=== PATIENT | female | born 1985 | race Caucasian/White ===

== ENCOUNTER → 2017-02-22 08:51 | Day surgery (SDC) | payer OTHER ==
[~2017-02-22 08:51] MED LIST: Atracurium* 10 MG/ML 10 ML VIAL ONE; Buffered Lidocaine 1% SYRIN* 3 ML/SYR SYRINGE INTRADERM ONE; Bupivacaine 0.5% W/EPI SDV* 30 ML VIAL ONE; Dexamethasone IV* 4 MG/ML 1 ML (4 MG) IV SLOW PU ONE; Dexamethasone IV* 4 MG/ML 1 ML (4 MG) ONE; DiMENhydriNATE IV* 50 MG/ML VIAL IV PUSH PRN; DiMENhydriNATE IV* 50 MG/ML VIAL ONE; Edrophonium Chloride* 10 MG/ML 15 ML VIAL ONE; Glycopyrrolate IV* 0.2 MG/ML 1 ML VIAL ONE; HYDROmorphone* 1 MG/ML 1 ML SYR IV PRN; Ketorolac INJ* 30 MG/ML 1 ML VIAL ONE; Lidocaine 2% PF* 5 ML VIAL ONE; Midazolam* 1 MG/ML 5 ML VIAL (5 MG) ONE; Ondansetron INJ* 2 MG/ML VIAL IV PRN; Ondansetron INJ* 2 MG/ML VIAL ONE; Propofol* 10 MG/ML 20 ML BTL IV PUSH ONE; Scopolamine 1.5 mg* PATCH TRANSDERM PRN; Scopolomine PATCH Remove* 1 NOTE MISC PATCH OFF ONE; ceFAZolin 2 GM PREMIX(*) 2 GM/50 ML BAG IVPB ONE; fentaNYL* 50 MCG/ML 2 ML VIAL (100 MCG VIAL) IV PRN; fentaNYL* 50 MCG/ML 2 ML VIAL (100 MCG VIAL) ONE; fentaNYL* 50 MCG/ML 5 ML VIAL (250 MCG VIAL) ONE; oxyCODONE/Acetamin 5/325 MG* TAB PO PRN
[2017-02-22 08:52] LABS: Manual Entry Verification AS; UR Preg Internal Control QC Line Present; UR Preg Kit Lot# 6030156
[2017-02-22 13:45] VITALS: BP 138/89
--- NOTE | 2017-02-23 15:28 | OP ---
DATE OF OPERATION: 02/22/17 - [facility] DATE OF : 85 SURGEON: Helder Grigsby MD PRESCHOOL HEAD TEACHER: JAMEE Peterson ANESTHESIOLOGIST: Dr. Singh. ANESTHESIA: General endotracheal. PRE-OP DIAGNOSIS: Symptomatic gallstones. POST-OP DIAGNOSIS: Symptomatic gallstones. OPERATIVE PROCEDURE: Laparoscopic cholecystectomy. ESTIMATED BLOOD LOSS: Minimal. IV FLUIDS: Crystalloids. SPECIMEN: Gallbladder. DRAINS: None. COMPLICATIONS: None. COUNTS: The instrument, needle, and sponge counts were correct. DESCRIPTION OF PROCEDURE: The patient was brought to the operating room and placed on the table supine. Sequential compression devices were placed on both lower extremities and general anesthesia was administered. Her abdomen was prepped and draped in the usual sterile fashion. Local anesthetic was infiltrated into the skin and soft tissue prior to making each incision. Entry to the abdomen was through a right upper quadrant incision accommodating a 5-mm optical trocar. After accessing the peritoneal cavity, carbon dioxide was insufflated to a pressure of 15 mmHg and a 5-mm 0-degree laparoscope was introduced. There was noted to be no injury to the underlying viscera. Under direct visualization, 5-mm trocars were placed in the supraumbilical midline and further laterally in the right upper quadrant. A 12-mm trocar was placed in the subxiphoid position. The gallbladder was identified. It did not appear to be acutely inflamed and it was grasped at the fundus and retracted superiorly. The infundibulum was identified and the peritoneum investing the gallbladder was incised sharply and using cautery and blunt dissection, the peritoneum was peeled away to expose the infundibulocystic duct junction, which was dissected out and in addition, the node of Calot was dissected out and the cystic artery was identified and after obtaining a critical view, the cystic duct was doubly clipped and divided. The cystic artery was clipped and divided and then cautery and scissor dissection was used to divide the gallbladder from the attachments to the liver. There was a posterior branch of the cystic artery , which was encountered and clipped. The gallbladder was then completely dissected free of its attachments to the liver, placed into a retrieval bag, and retrieved through the subxiphoid port site. The hemostasis in the liver bed was assured and then clips were noted to be intact. The ports were removed under direct visualization and carbon dioxide was released. The port sites were closed with 4-0 Polysorb to approximate the skin edges in a subcuticular fashion. Steri-Strips were applied. The patient tolerated the procedure well, was extubated, and transferred to recovery room in stable condition. CC: Dr. Holly Jesus* [id number]/CPS #: [id number] [id number]
== END | disposition home or self-care (01) ==
LOC: OR 08:51
PROVIDERS: ATTEND Surgery
DX: K80.10 Calculus of gallbladder with chronic cholecystitis without obstruction (principal); K21.9 Gastro-esophageal reflux disease without esophagitis; E03.9 Hypothyroidism, unspecified; R73.03 Prediabetes; F41.8 Other specified anxiety disorders; E66.01 Morbid (severe) obesity due to excess calories
CPT/HCPCS: 81025; 88304; J0690; J1100; J1240; J1885; J2250; J2405; J2704; J3010

== ENCOUNTER 2018-12-20 16:43 | Emergency (ER) | payer OTHER ==
[2018-12-20] MEDS ORDERED: NS 0.9% 1000 ML** 1,000 ML IV ONE (18:09)
[2018-12-20] MEDS ORDERED: Ketorolac INJ* 30 MG/ML 1 ML VIAL IV ONE (18:09)
[2018-12-20] MEDS ORDERED: Metoclopramide IV* 5 MG/ML 2 ML VIAL IV ONE (18:11)
--- NOTE | 2018-12-20 18:18 | ED ---
GI/ HPI - HPI Summary HPI Summary: Patient is a 33 y/o F presenting to ED with complaints of sudden onset RLQ pain with radiation to her back. Pain onset 1530, has been constant since. Chills, nausea are also reported. She notes PMHx of kidney stones, PSHx of section, cholecystectomy. Appendix is still present. On triage, pain is rated 10 /10, nothing is noted to aggravate/alleviate Sx. Home medications and allergies are reviewed. - History of Current Complaint Chief Complaint: EDAbdPain Time Seen by Provider: 12/20/18 18:04 Stated Complaint: ABD PAIN/BACK PAIN Hx Obtained From: Patient Hx Last Menstrual Period: 01/28/16 Onset/Duration: Started Hours Ago - 1530 onset today, Still Present Timing: Constant, Lasting Hours - 1530 onset today Severity: Severe - 10/10 Current Severity: Severe - 10/10 Pain Intensity: 10 Location of Pain: RLQ Pain Radiates to: Back Associated Signs and Symptoms: Positive: Back Pain, Nausea, Chills, Abdominal Pain Aggravating Factor(s): Nothing Alleviating Factor(s): Nothing - Additional Pertinent History Primary Care Physician: [id number] - Allergy/Home Medications Allergies/Adverse Reactions: Allergies Allergy/AdvReac Type Severity Reaction Status Date / Time adhesive Allergy Rash Verified 12/20/18 18:06 morphine Allergy Vomiting Verified 12/20/18 18:06 povidone-iodine Allergy Rash Verified 12/20/18 18:06 [From Betadine] Home Medications: Home Medications Lisinopril [Zestril 2.5 MG-] 2.5 mg PO DAILY 12/20/18 [History Confirmed ] cloNIDine HCl [Clonidine HCl ER 0.1 MG] 0.1 mg PO DAILY 12/20/18 [History Confirmed 12/20/18] metFORMIN* [Glucophage 500 MG TAB *] 500 mg PO BID 12/20/18 [History Confirmed 12/20/18] PMH/Surg Hx/FS Hx/Imm Hx Endocrine/Hematology History: Reports: Hx Diabetes - borderline, Hx Thyroid Disease, Hx Anemia - hx of. no problems now Cardiovascular History: Reports: Hx Hypertension GI History: Reports: Hx Gastroesophageal Reflux Disease Denies: Other GI Disorders History: Reports: Hx Kidney Stones - till has some kidney stones Sensory History: Denies: Hx Contacts or Glasses, Hx Hearing Aid Opthamlomology History: Denies: Hx Contacts or Glasses Neurological History: Reports: Other Neuro Impairments/Disorders - hx of vertigo r/t sinus infection Psychiatric History: Reports: Hx Anxiety, Hx Depression - Surgical History Surgery Procedure, Year, and Place: x2 epidural, cholecystectomy Hx Anesthesia Reactions: No - Immunization History Date of Tetanus Vaccine: up to date Date of Influenza Vaccine: never Infectious Disease History: No Infectious Disease History: Denies: Traveled Outside the [place] in Last 30 Days - Family History Known Family History: Positive: Cardiac Disease, Diabetes, Other - breast CA Family History: Per EMR from 08/07/2015, positive for unspecified cardiac dz and HTN in father. Positive breast CA and DM in mother. - Social History Alcohol Use: Rare Hx Substance Use: No Substance Use Type: Reports: None Hx Tobacco Use: No Smoking Status (MU): Never Smoked Tobacco Review of Systems Positive: Chills Positive: Abdominal Pain - with radiation to back , Nausea All Other Systems Reviewed And Are Negative: Yes Physical Exam - Summary Physical Exam Summary: Appearance: Well appearing, no pain distress Skin: warm, dry, reflects adequate perfusion Head/face: normal Eyes: EOMI, THONG ENT: normal Neck: supple, non-tender Respiratory: CTA, breath sounds present Cardiovascular: RRR, pulses symmetrical Abdomen: RLQ tenderness, soft Musculoskeletal: normal, strength/ROM intact Neuro: normal, sensory motor intact, A&Ox3 Triage Information Reviewed: Yes Vital Signs On Initial Exam: Initial Vitals Temp Pulse Resp BP Pulse Ox 98.5 F 107 24 165/84 100 12/20/18 16:46 12/20/18 16:46 12/20/18 16:46 12/20/18 16:46 12/20/18 16:46 Vital Signs Reviewed: Yes Diagnostics - Vital Signs Vital Signs Temp Pulse Resp BP Pulse Ox 12/20/18 16:46 98.5 F 107 24 165/84 100 - Laboratory Result Diagrams: 12/20/18 18:22 12/20/18 18:22 Lab Statement: Any lab studies that have been ordered have been reviewed, and results considered in the medical decision making process. - CT abd/pel ct CT Interpretation Completed By: Radiologist Summary of CT Findings: CT ABD/PEL IMPRESSION. 1. Distal right ureteral stone with dilatation of the right ureter and renal. pelvis and perinephric fat stranding. 2. No other acute findings. THIS REPORT WAS REVIEWED BY ED PHYSICIAN. Re-Evaluation - Re-Evaluation First Eval Re-Evaluation Time: 20:43 Comment: Results of labs and tests were dicussed with patient. She will be discharged to home to follow up with PCP and urologist. She is agreeable with this. GIGU Course/Dx - Course Course Of Treatment: Patient is a 33 y/o F presenting to ED with complaints of sudden onset RLQ pain with radiation to her back. Pain onset 1530, has been constant since. Chills, nausea are also reported. She notes PMHx of kidney stones, PSHx of section, cholecystectomy. Appendix is still present. On physical exam, RLQ tenderness is noted. Bloodwork, UA were obtained. CT ABD /PEL IMPRESSION. 1. Distal right ureteral stone with dilatation of the right ureter and renal. pelvis and perinephric fat stranding. During ED course, patient received Flomax 0.4 mg PO ONCE, fluids, reglan 10 mg IV ONCE, Toradol 30 mg IV ONCE, Zofran 4 mg SL ONCE, and Percocet 5/325 2 tab PO ONCE. Results of labs and tests were dicussed with patient. She will be discharged to home to follow up with PCP and urologist. She is agreeable with this. - Diagnoses Differential Diagnoses - Female: Ovarian Cyst, Pancreatitis, Renal Calculi, Urinary Tract Infection, Ureteral Calculi Provider Diagnoses: Renal colic Discharge - Sign-Out/Discharge Documenting (check all that apply): Patient Departure - DISCHAGE Patient Received Moderate/Deep Sedation with Procedure: No - Discharge Plan Condition: Stable Disposition: HOME Prescriptions: Ondansetron ODT TAB* [Zofran 4 MG Odt TAB*] 4 mg PO Q8H PRN #15 tab.odt MDD 3 PRN Reason: Nausea Oxycodone HCl/Acetaminophen [Percocet] 1 tab PO TID #15 tab MDD 3 Tamsulosin CAP* [Flomax CAP*] 0.4 mg PO DAILY #14 cap Patient Education Materials: Renal Colic (ED) Referrals: Holly Jesus MD [Primary Care Provider] - 3 Days Myke Guerrero MD [Medical Doctor] - 3 Days Additional Instructions: RETURN TO ED WITH ANY NEW OR WORSENING SYMPTOMS. FOLLOW UP WITH PRIMARY CARE PHYSICIAN AND UROLOGIST WITHIN THREE DAYS. - Billing Disposition and Condition Condition: STABLE Disposition: Home - Attestation Statements Document Initiated by Scribe: Yes Documenting Scribe: DAMASO ROY Provider For Whom Scribe is Documenting (Include Credential): CHARLES QUIÑONEZ MD Scribe Attestation: DAMASO Kolb , scribed for CHARLES QUIÑONEZ MD on 12/20/18 at 2117. Scribe Documentation Reviewed: Yes Provider Attestation: The documentation as recorded by the DAMASO salazar accurately reflects the service I personally performed and the decisions made by me, CHARLES QUIÑONEZ MD Status of Scribe Document: Viewed
[2018-12-20 18:33] LABS: ABS Basophils 0 10^3/ul (0-0.2); ABS Eosinophils 0.1 10^3/ul (0-0.6); ABS Lymphocytes 1.7 10^3/ul (1.0-4.8); ABS Monocytes 0.5 10^3/ul (0-0.8); ABS Neutrophils 13.5 10^3/ul (1.5-7.7); ABS Nucleated RBC 0 10^3/ul; Eosinophil % 0.4 %; Hematocrit 41 % (35-47); Hemoglobin 13.9 g/dl (12.0-16.0); Lymphocyte % 10.6 %; Mean Corpuscular HGB Conc 34 g/dl (31-36); Mean Corpuscular Hemoglobin 28 pg (27-31); Mean Corpuscular Volume 82 fL (80-97); Nucleated Red Blood Cells % 0; Platelet Count 475 10^3/ul (150-450); Red Cell Distribution Width 15 % (10.5-15); White Blood Count 15.8 10^3/ul (3.5-10.8)
[2018-12-20 18:41] LABS: Activated Partial Thrombo Time 27.2 seconds (26.0-36.3); INR 0.87 (0.77-1.02)
[2018-12-20 18:56] LABS: ALT 38 U/L (7-52); AST 28 U/L (13-39); Albumin 4.9 g/dL (3.2-5.2); Albumin/Globulin Ratio 1.4 (1-3); Alkaline Phosphatase 73 U/L (34-104); Anion Gap 17 mmol/L (2-11); BUN/Creatinine Ratio 17.9 (8-20); Blood Urea Nitrogen 17 mg/dL (6-24); CO2 Carbon Dioxide 19 mmol/L (22-32); Chloride 101 mmol/L (101-111); EGFR Non-African American 67.7 (>60); Globulin 3.4 g/dL (2-4); Glucose 196 mg/dL (70-100); Potassium 3.8 mmol/L (3.5-5.0); Sodium 137 mmol/L (135-145); Total Protein 8.3 g/dL (6.4-8.9)
[2018-12-20 18:59] LABS: HCG Pregnancy < 0.60 mIU/mL
[2018-12-20 20:10] LABS: Urine Appearance Clear; Urine Bacteria Absent (Absent); Urine Bilirubin Negative (Negative); Urine Blood Negative (Negative); Urine Color Yellow; Urine Glucose Negative (Negative); Urine Ketones 2+ (Negative); Urine Nitrite Negative (Negative); Urine Protein 1+(30 mg/dL) (Negative); Urine Red Blood Cell 2+(6-10/hpf) (Absent); Urine Specific Gravity 1.025 (1.010-1.030); Urine Squamous Epithelial Cell Present (Absent); Urine Urobilinogen Negative (Negative); Urine White Blood Cell Trace(0-5/hpf) (Absent)
[2018-12-20] MEDS ORDERED: Tamsulosin CAP* 0.4 MG PO ONE (20:30)
[2018-12-20] MEDS ORDERED: Ondansetron ODT TAB* 4 MG SL ONE (20:46)
[2018-12-20] MEDS ORDERED: oxyCODONE/Acetamin 5/325 MG* TAB PO ONE (20:46)
[2018-12-20 21:05] VITALS: BP 144/100
== END 2018-12-20 21:05 | disposition home or self-care (01) ==
LOC: ED 16:43
DX: N20.2 Calculus of kidney with calculus of ureter (principal); Z87.442 Personal history of urinary calculi
CPT/HCPCS: 36415; 74176; 80053; 81003; 81015; 83690; 84702; 85025; 85610; 85730; 87086; 96361; 96374; 96375; 99284; A9270-GY; J1885; J2765

== ENCOUNTER 2018-12-29 15:53 | Emergency (ER) | payer OTHER ==
--- OUTSIDE RECORDS SUMMARY | 2018-12-29 16:06 | XMS REPORT | Continuity of Care Document ---
:1985 External Reference #:[id number] Author Name Holly Jesus M.D. 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 Active Onset: 07/30/2014 Type 2 diabetes mellitus Holly Jesus M.D. Active Onset: 04/06/2012 Impaired fasting glycaemia Heather Jose M.D. Active Onset: 12/02/2011 Depressive disorder Heather Jose M.D. Active Onset: 12/02/2011 Morbid obesity Heather Jose M.D. Active Onset: 12/02/2011 Hypothyroidism Heather Jose M.D. Active Family History Date Family Member(s) Problem(s) Comments General Diabetes Mellitus, II many on father's side. , MOm's sister. General no fam hx lung,colon CA. Father due to Heart Disease () - AGE 49, Diabetes. Mother HTN, Depression, History Of BR Cancer, DM. Lives in [place] Number of Children 2 First Son healthy First Daughter hip dysplasia in full body cast x 4 1/2 months. follows with ortho in [place]. First Sister hypothyroid. livesin [place]. Second Sister healthy. lives in [place]. Social History Type Date Description Comments Sex Unknown Marital Status Has male partner Living Situation Lives with son and daughter, boyfriend. 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 Tobacco Use Start: Unknown Never Smoked Cigarettes ETOH Use Occasionally consumes not even once a wine month. Tobacco Use Start: Unknown Patient has never smoked Smoking Status Reviewed: 11/24/17 Patient has never smoked Exercise Type/Frequency Exercises regularly. Current Taking a walk every day, even if only 20 minutes. Contraceptive Methods sharobel. STD's No STD history Allergies, Adverse Reactions, Alerts Date Description Reaction Status Severity Comments 12/02/2011 Betadine Active Medications Medication Date Status Form Strength Qnty SIG Indications Ordering Provider Prilosec OTC 09/18/ Active Tablets 20mg 30tab Take One Holly calvert Capsule By Ann Marie, Mouth Every M.D. Day Melatonin 07/13/ Active Capsules 3mg 30cap 1 by mouth Holly Elena s every night Ann Marie at bedtime M.Alisson Lisinopril 07/13/ Active Tablets 2.5mg 90tab 1 by mouth E11.9 Holly Clark 2018 s every day Stephen Jesus Metformin HCL 03/22/ Active Tablets 500mg 180ta 1 by mouth E11.9 Holly Clark 2018 bs twice Ann Marie, daily. M.D. please use this script. i in the morning increasing her metformin to 2 pills daily. thanks. Control 07/22/ Active Unknown Pill 2016 Levoxyl 02/20/ Active Tablets 75mcg 30tab take 1 Holly Clark 2012 enrike tablet by Ann Marie, mouth one M.D. time daily Prozac / Active Capsules 40mg 1 by mouth Unknown 0000 daily Clonidine HCL / Active Tablets 0.1mg 1 by mouth Unknown 0000 qhs Freestyle Lite 03/22/ Hx Strips 200un test blood E11.9 Holly Clark Test 2018 - its sugar twice Ann Marie, 12/26/ daily or as M.D. 2019 directed Ciprofloxacin 04/13/ Hx Solution 0.3% 2.500 1-2 drops H10.89 Holly Clark HCL 2015 - ml to left eye Ann Marie, 07/15/ every 1-6 M.D. 2016 hours until better. Cefdinir 01/13/ Hx Capsules 300mg 28cap 1 by mouth J01.80 Holly Clark 2016 - s twice daily Ann Marie, 07/15/ for 14 days M.D. 2015 Freestyle 28G 08/27/ Hx 100un Test Blood Holly Clark Lancets 2013 - its Sugar Two Ann Marie, 11/21/ Times Daily M.D. 2015 Glucometer 07/30/ Hx 100un take blood E03.8 Holly LJennifer Strips 2013 - its glucose Ann Marie, 11/21/ twice a M.D. 2015 day. Lancets 07/30/ Hx 100un take blood E03.8 Holly LJennifer 2013 - its sugar twice Ann Marie, 11/21/ daily M.D. 2015 Metformin HCL 07/30/ Hx Tablets 500mg 90tab 1 po qd E03.8 Holly Clark 2013 - s Ann Marie, 01/13/ M.D. 2016 09/17/ Hx Tablets Family 2013 - Medicine 07/15/ Associates 2016 [facility] [place] Cephalexin 04/10/ Hx Capsules 500mg 14cap 1 po bid x 680.8 Oma 2012 - s 7 days Casper, 04/17/ Afnp-C 2013 Wellbutrin 10/09/ Hx Tablets 100mg 3 tabs PO 311 Monique 2011 - daily Lisa, 01/10/ CALENDER W[employer] UP TENDER 2013 Zoloft 12/02/ Hx Tablets 75mg 1 po qd Heather Vinson [address] - [facility], 01/06/ M.D. 2012 Wellbutrin XL 12/02/ Hx Tablets 150mg 30tab Take One Heather Vinson 2011 - ER 24HR s Tablet By Damon, 10/09/ Mouth Every M.D. 2012 Day Amoxicillin 02/10/ Hx Tablets 500mg 30tab 1 tid x 10 461.9 Oma 2010 - s days Casper, 02/20/ Afnp-C 2010 Prilosec 11/13/ Hx Capsules 20mg 30cap Take One Holly Clark 2007 - s Capsule By Ann Marie, 09/18/ Mouth Every M.D. 2018 Day Zithromax 01/06/ Hx Tablets 250mg 6tabs 2 tabs po Slabador T. 2007 - day 1; then Midura, tab qd M.D. 2007 days 2-5 Tamiflu 01/06/ Hx Capsules 75mg 10cap 1 po bid Salbador T. 2007 - s Lamar, 06/11/ M.D. 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 for Severe L Ankle Sprain Ortho 08/04/2005 - Hx Tablets 0.035mg 1Month 1 po qd Oma Tri-Cyclen 07/09/2010 ;0.18mg Casper, ;0.035 Afnp-C Keflex 12/09/2003 - Hx 500mg 0units 1 po qid x Family 02/02/2005 10d Medicine [facility] Iron Tab 05/14/2002 - Hx 325mg 100unit 1 po bid Salbador T. 02/02/2005 enrike Newton M.D. Pepcid 08/11/2000 - Hx 40mg 30units 1 PO QHS Aline 11/02/2000 DERREK Bailey Levoxyl 07/15/1999 - Hx 0.025mg 90units 1 po qd Evert Machado 12/09/2003 Stephen Alvarez Naproxen 12/09/1998 - Hx 375mg 30units 1 tid For Soren Vogt 12/23/1998 Tab One Week Blumkin, Then tid prn M.D. Levoxyl 06/10/1998 - Hx Tablets 75mcg 30tabs Take One 244.9 Daysi 02/20/2013 Tablet By Andrzejorf, Mouth Every Afnp-C Day Zyrtec - Hx Tablets 10mg OTC 1 po qd Unknown 04/10/2013 Ortho - Hx Tablets use as Unknown Tri-Cyclen 09/17/2013 directed Multi Vitamin - Hx Tablets Unknown 04/10/2013 Wellbutrin SR - Hx Tablets ER 200M 1 PO bid Unknown 01/10/2013 12HR Wellbutrin SR - Hx Tablets ER 200mg 1 po bid 311 Unknown 04/10/2013 12HR Bupropion HCL - Hx Tablets ER 150mg 1 po qd Unknown XL 09/17/2013 24HR Bupropion HCL - Hx Tablets ER 300mg 1 po qd Unknown XL 09/17/2013 24HR Prozac - Hx Capsules 20mg 1 by mouth Unknown 04/13/2016 every day Gabapentin - Hx Capsules 300mg 1 by mouth Unknown 06/24/2017 [facility] Immunizations CPT Code Status Date Vaccine Lot # [id number] Given 09/13/2018 Pneumococcal Conjugate Vacc-13 [id number] Given 07/30/2014 Tdap Tetanus, W Pertussis [id number] Given 10/20/1999 Td Immunization, For Use In Individuals 7 Years Or Older Vital Signs Date Vital Result Comment 12/26/2018 9:33am BP Systolic 100 mmHg BP Diastolic 60 mmHg Heart Rate 64 /min Body Temperature 98.3 F Respiratory Rate 16 /min Height 64.5 inches 5'4.50" measured 11/24/17 Weight 233.00 lb BMI (Body Mass Index) 39.4 kg/m2 09/13/2018 11:36am BP Systolic 138 mmHg BP Diastolic 80 mmHg Heart Rate 60 /min Body Temperature 98.1 F Respiratory Rate 18 /min Height 64.5 inches 5'4.50" measured 11/24/17 Weight 237.00 lb BMI (Body Mass Index) 40.0 kg/m2 07/13/2018 9:43am BP Systolic 122 mmHg BP Diastolic 70 mmHg Heart Rate 72 /min Body Temperature 97.9 F Respiratory Rate 18 /min Height 64.5 inches 5'4.50" measured 11/24/17 Weight 243.00 lb BMI (Body Mass Index) 41.1 kg/m2 03/22/2018 11:51am BP Systolic 142 mmHg BP Diastolic 92 mmHg Heart Rate 96 /min Body Temperature 98.1 F Height 64.5 inches 5'4.50" measured 11/24/17 Weight 246.56 lb BMI (Body Mass Index) 41.7 kg/m2 11/24/2017 11:04am BP Systolic 128 mmHg BP Diastolic 74 mmHg Heart Rate 66 /min Body Temperature 98.1 F Respiratory Rate 16 /min Height 64.5 inches 5'4.50" measured 11/24/17 Weight 249.50 lb BMI (Body Mass Index) 42.2 kg/m2 06/01/2017 12:09pm BP Systolic 120 mmHg BP Diastolic 80 mmHg Heart Rate 84 /min Body Temperature 98.2 F Respiratory Rate 18 /min Height 64 inches 5'4" Weight 244.00 lb BMI (Body Mass Index) 41.9 kg/m2 03/02/2017 11:38am BP Systolic 122 mmHg BP Diastolic 74 mmHg Heart Rate 78 /min Body Temperature 98.4 F Respiratory Rate 16 /min Height 64 inches 5'4" Weight 237.50 lb BMI (Body Mass Index) 40.8 kg/m2 02/07/2017 5:49pm BP Systolic 134 mmHg BP Diastolic 80 mmHg Heart Rate 78 /min Body Temperature 96.8 F Respiratory Rate 16 /min Height 64 inches 5'4" Weight 240.00 lb BMI (Body Mass Index) 41.2 kg/m2 10/19/2016 10:17am BP Systolic 120 mmHg BP Diastolic 80 mmHg Heart Rate 68 /min Body Temperature 98.0 F Respiratory Rate 18 /min Height 64 inches 5'4" Weight 238.00 lb BMI (Body Mass Index) 40.8 kg/m2 07/15/2016 3:37pm BP Systolic 110 mmHg BP Diastolic 76 mmHg Heart Rate 72 /min Body Temperature 98.1 F Respiratory Rate 18 /min Height 64 inches 5'4" Weight 235.00 lb BMI (Body Mass Index) 40.3 kg/m2 04/13/2016 9:18am BP Systolic 110 mmHg BP Diastolic 80 mmHg Heart Rate 68 /min Body Temperature 98.3 F Respiratory Rate 18 /min Height 64 inches 5'4" Weight 238.00 lb BMI (Body Mass Index) 40.8 kg/m2 01/13/2016 2:56pm BP Systolic 120 mmHg BP Diastolic 80 mmHg Heart Rate 96 /min Body Temperature 98.0 F Respiratory Rate 18 /min Height 64 inches 5'4" Weight 226.00 lb BMI (Body Mass Index) 38.8 kg/m2 08/29/2015 10:56am BP Systolic 124 mmHg BP Diastolic 70 mmHg Heart Rate 68 /min Body Temperature 98.4 F Respiratory Rate 18 /min Height 64 inches 5'4" Weight 208.25 lb BMI (Body Mass Index) 35.7 kg/m2 01/16/2015 2:39pm BP Systolic 130 mmHg BP Diastolic 80 mmHg Heart Rate 86 /min Body Temperature 97.4 F Height 64 inches 5'4" Weight 241.00 lb BMI (Body Mass Index) 41.4 kg/m2 10/11/2014 3:22pm BP Systolic 130 mmHg BP Diastolic 80 mmHg Heart Rate 74 /min Body Temperature 98.4 F Respiratory Rate 14 /min Height 64 inches 5'4" Weight 248.00 lb BMI (Body Mass Index) 42.6 kg/m2 08/29/2014 2:16pm BP Systolic 126 mmHg BP Diastolic 70 mmHg Heart Rate 68 /min Body Temperature 98.0 F Respiratory Rate 18 /min Height 64 inches 5'4" Weight 253.00 lb BMI (Body Mass Index) 43.4 kg/m2 07/30/2014 12:53pm BP Systolic 106 mmHg BP Diastolic 84 mmHg Heart Rate 72 /min Body Temperature 96.4 F Height 64 inches 5'4" Weight 257.38 lb BMI (Body Mass Index) 44.2 kg/m2 Right Visual Acuity Distance 20/40 uncorrected Left Visual Acuity Distance 20/25 -2 05/08/2014 2:13pm BP Systolic 158 mmHg BP Diastolic 80 mmHg Heart Rate 120 /min Body Temperature 98.3 F Respiratory Rate 18 /min Height 63.5 inches 5'3.50" Weight 256.50 lb BMI (Body Mass Index) 44.7 kg/m2 01/01/2014 10:00am BP Systolic 122 mmHg BP Diastolic 72 mmHg Heart Rate 88 /min Body Temperature 97.0 F Respiratory Rate 16 /min Height 63.5 inches 5'3.50" Weight 244.38 lb BMI (Body Mass Index) 42.6 kg/m2 09/17/2013 10:12am BP Systolic 132 mmHg BP Diastolic 88 mmHg Heart Rate 88 /min Body Temperature 97.4 F Height 63.5 inches 5'3.50" Weight 234.38 lb BMI (Body Mass Index) 40.9 kg/m2 05/16/2013 12:55pm BP Systolic 110 mmHg BP Diastolic 80 mmHg Heart Rate 80 /min Respiratory Rate 16 /min Height 63.5 inches 5'3.50" Weight 234.00 lb BMI (Body Mass Index) 40.8 kg/m2 04/10/2013 6:27pm BP Systolic 120 mmHg BP Diastolic 70 mmHg Heart Rate 88 /min Body Temperature 98.5 F Respiratory Rate 18 /min Height 63.5 inches 5'3.50" Weight 229.50 lb BMI (Body Mass Index) 40.0 kg/m2 01/10/2013 9:13am BP Systolic 110 mmHg BP Diastolic 80 mmHg Heart Rate 84 /min Body Temperature 97.1 F Respiratory Rate 16 /min Height 63.5 inches 5'3.50" Weight 233.00 lb BMI (Body Mass Index) 40.6 kg/m2 10/09/2012 9:11am BP Systolic 130 mmHg BP Diastolic 82 mmHg Heart Rate 88 /min Body Temperature 97.6 F Height 63.5 inches 5'3.50" Weight 240.00 lb BMI (Body Mass Index) 41.8 kg/m2 04/06/2012 12:52pm BP Systolic 116 mmHg BP Diastolic 80 mmHg Heart Rate 96 /min Body Temperature 98.6 F Height 63.5 inches 5'3.50" Weight 248.00 lb BMI (Body Mass Index) 43.2 kg/m2 01/06/2012 1:32pm BP Systolic 120 mmHg BP Diastolic 72 mmHg Heart Rate 72 /min Respiratory Rate 15 /min Height 63.5 inches 5'3.50" Weight 244.00 lb BMI (Body Mass Index) 42.5 kg/m2 12/02/2011 12:59pm BP Systolic 124 mmHg BP Diastolic 82 mmHg Heart Rate 72 /min Body Temperature 98.4 F Height 63.5 inches 5'3.50" Weight 244.00 lb BMI (Body Mass Index) 42.5 kg/m2 02/10/2011 11:17am BP Systolic 108 mmHg BP Diastolic 70 mmHg Heart Rate 108 /min Body Temperature 98.6 F O2 % BldC Oximetry 100 % Height 63.5 inches 5'3.50" Weight 234.00 lb BMI (Body Mass Index) 40.8 kg/m2 02/05/2011 11:28am BP Systolic 120 mmHg BP Diastolic 70 mmHg Heart Rate 120 /min Body Temperature 98.1 F Respiratory Rate 20 /min Weight 236.00 lb 07/09/2010 3:45pm BP Systolic 120 mmHg BP Diastolic 88 mmHg Heart Rate 68 /min Body Temperature 98.1 F Respiratory Rate 16 /min Weight 230.00 lb 07/09/2009 8:48am Heart Rate 92 /min Body Temperature 98.0 F Respiratory Rate 16 /min Weight 240.00 lb 06/18/2009 10:12am BP Systolic 120 mmHg BP Diastolic 80 mmHg Heart Rate 88 /min Body Temperature 98.6 F Height 63.5 inches 5'3.50" Weight 240.00 lb BMI (Body Mass Index) 41.8 kg/m2 06/11/2008 9:58am BP Systolic 130 mmHg BP Diastolic 80 mmHg Heart Rate 76 /min Height 63.5 inches 5'3.50" Weight 223.00 lb BMI (Body Mass Index) 38.9 kg/m2 01/06/2008 11:35am BP Systolic 124 mmHg BP Diastolic 60 mmHg Heart Rate 120 /min Body Temperature 102.5 F Weight 215.00 lb 06/08/2007 2:18pm BP Systolic 132 mmHg BP Diastolic 80 mmHg Heart Rate 84 /min Body Temperature 98.2 F Weight 202.00 lb 05/11/2007 3:32pm BP Systolic 124 mmHg BP Diastolic 70 mmHg Heart Rate 84 /min Weight 204.00 lb 03/28/2007 7:35pm BP Systolic 114 mmHg BP Diastolic 62 mmHg Heart Rate 78 /min Body Temperature 99.3 F Respiratory Rate 15 /min 04/22/2006 2:02pm BP Systolic 126 mmHg BP Diastolic 70 mmHg Heart Rate 90 /min Weight 198.00 lb 02/18/2006 1:18pm BP Systolic 134 mmHg BP Diastolic 70 mmHg Heart Rate 88 /min Weight 200.00 lb 01/18/2006 10:17am BP Systolic 120 mmHg BP Diastolic 80 mmHg Heart Rate 76 /min Weight 200.00 lb 08/04/2005 5:02pm BP Systolic 112 mmHg BP Diastolic 66 mmHg Heart Rate 70 /min Height 64 inches 5'4" Weight 201.00 lb BMI (Body Mass Index) 34.5 kg/m2 02/02/2005 6:03pm BP Systolic 116 mmHg BP Diastolic 60 mmHg Heart Rate 78 /min Weight 200.00 lb 10/14/2004 12:19pm BP Systolic 110 mmHg BP Diastolic 60 mmHg Heart Rate 72 /min Body Temperature 95.9 F Weight 187.00 lb 03/03/2004 7:23pm BP Systolic 124 mmHg BP Diastolic 68 mmHg Heart Rate 70 /min Weight 200.00 lb Weight Percentile >95th 12/12/2003 11:20am BP Systolic 118 mmHg BP Diastolic 78 mmHg Heart Rate 78 /min Body Temperature 97.6 F Respiratory Rate 18 /min 12/09/2003 7:06pm BP Systolic 134 mmHg BP Diastolic 88 mmHg Heart Rate 62 /min Weight 204.00 lb Weight Percentile >95th 05/02/2002 4:37pm Heart Rate 96 /min Body Temperature 98.6 F Weight 212.00 lb Weight Percentile >95th 11/15/2001 12:57pm BP Systolic 122 mmHg BP Diastolic 74 mmHg Body Temperature 98.6 F Weight 216.00 lb Weight Percentile >95th 09/05/2000 7:09pm BP Systolic 130 mmHg BP Diastolic 70 mmHg Heart Rate 66 /min Weight 215.00 lb 08/11/2000 4:34pm BP Systolic 130 mmHg BP Diastolic 70 mmHg Heart Rate 88 /min Body Temperature 97.5 F Weight 213.00 lb Weight Percentile >95th 10/20/1999 7:45pm BP Systolic 166 mmHg BP Diastolic 84 mmHg Heart Rate 100 /min Height 64 inches 5'4" Weight 211.00 lb BMI (Body Mass Index) 36.2 kg/m2 Weight Percentile >95th Height Percentile 62 % Right Visual Acuity Distance 20/40 Left Visual Acuity Distance 20/25 07/09/1999 3:57pm Weight 202.50 lb Weight Percentile >95th 12/09/1998 8:06pm Body Temperature 97.5 F Weight 190.00 lb Weight Percentile >95th 06/18/1998 4:03pm BP Systolic 132 mmHg BP Diastolic 60 mmHg Weight 176.00 lb Weight Percentile >95th Results Test Date Facility Test Result H/L Range Note Urine Culture And 12/20/2018 [facility] Urine Culture SEE RESULT 1 Sensitivities BELOW Urinalysis Profile 12/20/2018 [facility] Urine Color Yellow Urine Appearance Clear Urine Specific Gr[place]ley 1.025 N 1.010-1.030 Urine pH 6.0 N 5-9 Urine Urobilinogen Negative Negative Urine Ketones 2+ Abnormal Negative Urine Protein 1+(30 mg/dL) Abnormal Negative Urine Leukocytes Negative Negative Urine Blood Negative Negative Urine Nitrite Negative Negative Urine Bilirubin Negative Negative Urine Glucose Negative Negative Urine White Blood Cell Trace(0-5/hpf) Absent Urine Red Blood Cell 2+(6-10/hpf) Abnormal Absent Urine Bacteria Absent Absent Urine Squamous Epithelial Cell Present Abnormal Absent Laboratory test finding 12/20/2018 [facility] Lipase 20 U/L N 11.0-82.0 HCG < 0.60 mIU/mL 2 CBC Auto Diff 12/20/2018 [facility] White Blood Count 15.8 10^3/uL High 3.5- 10.8 Red Blood Count 5.00 10^6/uL N 4.00-5.40 Hemoglobin 13.9 g/dL N 12.0-16.0 Hematocrit 41 % N 35-47 Mean Corpuscular Volume 82 fL N 80-97 Mean Corpuscular Hemoglobin 28 pg N 27-31 Mean Corpuscular HGB Conc 34 g/dL N 31-36 Red Cell Distribution Width 15 % N 10.5-15 Platelet Count 475 10^3/uL High 150-450 Mean Platelet Volume 7.0 fL Low 7.4-10.4 Abs Neutrophils 13.5 10^3/uL High 1.5-7.7 Abs Lymphocytes 1.7 10^3/uL N 1.0-4.8 Abs Monocytes 0.5 10^3/uL N 0-0.8 Abs Eosinophils 0.1 10^3/uL N 0-0.6 Abs Basophils 0 10^3/uL N 0-0.2 Abs Nucleated RBC 0 10^3/uL Granulocyte % 85.5 % Lymphocyte % 10.6 % Monocyte % 3.3 % Eosinophil % 0.4 % Basophil % 0.2 % Nucleated Red Blood Cells % 0 Inr/Protime 12/20/2018 [facility] Inr 0.87 N 0.77-1.02 Comp Metabolic Panel 12/20/2018 [facility] Sodium 137 mmol/L N 135-145 Potassium 3.8 mmol/L N 3.5-5.0 Chloride 101 mmol/L N 101-111 Co2 Carbon Dioxide 19 mmol/L Low 22-32 Anion Gap 17 mmol/L High 2-11 Glucose 196 mg/dL High 70-100 Blood Urea Nitrogen 17 mg/dL N 6-24 Creatinine 0.95 mg/dL N 0.51-0.95 BUN/Creatinine Ratio 17.9 N 8-20 Calcium 10.0 mg/dL N 8.6-10.3 Total Protein 8.3 g/dL N 6.4-8.9 Albumin 4.9 g/dL N 3.2-5.2 Globulin 3.4 g/dL N 2-4 Albumin/Globulin Ratio 1.4 N 1-3 Total Bilirubin 0.50 mg/dL N 0.2-1.0 Alkaline Phosphatase 73 U/L N 34-104 Alt 38 U/L N 7-52 Ast 28 U/L N 13-39 Egfr Non- 67.7 >60 Egfr 82.0 >60 3 Laboratory test 12/20/2018 [facility] Partial 27.2 seconds N 26.0-36.3 finding Thrombo Time PTT Basic Metabolic 08/24/2018 [facility] ([facility]) Sodium 135 mEq/L 134- 149 Profile Potassium 5.1 mEq/L 3.6-5.5 Chloride 102 mEq/L 94-112 Carbon Dioxide 23 mEq/L 21-32 Glucose 122 mg/dL High 70-105 BUN 13 mg/dL 6-26 Creatinine 0.7 mg/dL 0.6-1.4 BUN/Creat Ratio 18.6 CALC 8.0-36.0 Calcium 10.0 mg/dL 8.6-10.2 GFR Non- >60 ml/min/1.73m^ >=60 GFR >60 ml/min/1.73m^ >=60 Laboratory test 07/18/2018 [facility] Cytology SEE RESULT 4 finding BELOW Laboratory test 06/26/2018 [facility] Medicine Hemoglobin A1c 6.6 % % High 4.1-5. finding (607)- - (Fma) 7 Comprehensive 06/26/2018 [facility] ([facility]) Sodium 144 mEq/L 134-14 Metabolic Prof 9 Potassium 5.2 mEq/L 3.6-5.5 Chloride 101 mEq/L 94-112 Carbon Dioxide 23 mEq/L 21-32 Glucose 170 mg/dL High 70-105 5 BUN 16 mg/dL 6-26 Creatinine 0.7 mg/dL 0.6-1.4 BUN/Creat Ratio 22.9 CALC 8.0-36.0 Calcium 9.8 mg/dL 8.6-10.2 Total Protein 7.1 g/dL 6.4-8.3 Albumin 4.4 g/dL 3.8-5.5 Globulin 2.7 g/dL 2.0-4.8 A/G Ratio 1.6 CALC 0.6-2.3 Alk. Phosphatase 70 U/L 30-110 Alt (SGPT) 40 U/L High 7-35 Ast (Sgot) 32 U/L 5-34 Total Bilirubin 0.5 mg/dL 0.2-1.3 GFR Non- >60 ml/min/1.73m^ >=60 GFR >60 ml/min/1.73m^ >=60 Lipid Profile 06/26/2018 [facility] ([facility]) Cholesterol 226 mg/dL High 120-200 Triglycerides 112 mg/dL 30-200 HDL Cholesterol 57 mg/dL 30-85 LDL (Calculated) 147 CALC High 0-129 VLDL Cholesterol 22 mg/dL 0-50 HDL Risk Factor 4.0 CALC 0.0-4.4 Laboratory test 03/22/2018 [facility] Hemoglobin A1c 6.6% % High 4.1 -5.7 finding (607)- - (Fma) CBC Electronic 02/23/2018 [facility] ([facility]) WBC 8.0 4.0-10.0 Fma x10^3/UL RBC 4.85 x10^6/UL 3.93-6.00 HGB 13.1 g/dL 12.0-17.0 HCT 40 % 35-50 MCV 83.3 fL 80.0-95.0 MCH 27.0 pg 25.6-32.2 MCHC 32.4 g/dL 32.2-36.0 RDW-CV 14.3 % 11.6-14.4 PLT 324 x10^3/UL 163-400 MPV 8.7 fL Low 9.4-12.4 6 Stephen# 5.46 x10^3/UL 1.56-6.13 Lymph# 1.75 x10^3/UL 1.18-3.74 Sauk# 0.51 x10^3/UL 0.24-0.82 Eos # 0.2 x10^3/UL 0.0-0.5 Baso # 0.03 x10^3/UL 0.01-0.08 Stephen% 68.4 % 34.0-70.0 Lymph % 21.9 % 20.0-52.0 Sauk% 6.4 % 5.0-12.0 Eos% 2.5 % 0.7-7.0 Baso% 0.4 % 0.1-1.2 Comprehensive Metabolic 02/23/2018 [facility] (a) Sodium 137 mEq/L 134-149 Prof Potassium 4.3 mEq/L 3.6-5.5 Chloride 98 mEq/L 94-112 Carbon Dioxide 24 mEq/L 21-32 Glucose 148 mg/dL High 70-105 7 BUN 13 mg/dL 6-26 Creatinine 0.7 mg/dL 0.6-1.4 BUN/Creat Ratio 18.6 CALC 8.0-36.0 Calcium 9.3 mg/dL 8.6-10.2 Total Protein 6.9 g/dL 6.4-8.3 Albumin 4.2 g/dL 3.8-5.5 Globulin 2.7 g/dL 2.0-4.8 A/G Ratio 1.6 CALC 0.6-2.3 Alk. Phosphatase 81 U/L 30-110 Alt (SGPT) 45 U/L High 7-35 8 Ast (Sgot) 33 U/L 5-34 Total Bilirubin 0.5 mg/dL 0.2-1.3 GFR Non- >60 ml/min/1.73m^ >=60 GFR >60 ml/min/1.73m^ >=60 Laboratory test 02/23/2018 [facility] (a) TSH 1.79 mIU/L 0.50- 6.00 finding Laboratory test 11/24/2017 [facility] Hemoglobin A1c 6.6 % High 4.1- 5.7 finding (607)- - (a) Laboratory test 06/01/2017 [facility] Hemoglobin A1c 6.2 % % High 4.1-5.7 finding (607)- - ([facility]) Laboratory test 03/02/2017 [facility] Hemoglobin A1c 5.9 % finding (607)- - Laboratory test 02/22/2017 [facility] (HCG) Negative N Negative 9 finding Urine PTH Intact & CA 12/08/2016 [facility] Calcium, Serum 9.8 mg/dL 8.7-10.2 10 Ser & Plasma [address] [place] [id number] (607)- - PTH, Intact 56 pg/mL 15-65 Intact PTH See Comment: 11 Laboratory test finding 11/03/2016 [facility] Lactic Acid 1.5 mmol/L N 0.5-2.0 12 Laboratory test finding 11/03/2016 [facility] TSH (Thyroid Stim 1.28 mcIU/mL N 0.34-5.60 Horm) Hemoglobin A1c (Glyco HGB) 6.4 % High Less than 6.0 13 CBC Auto Diff 11/03/2016 [facility] White Blood Count 9.4 10^3/uL N 3.5-10.8 Red Blood Count 4.75 10^6/uL N 4.0-5.4 Hemoglobin 13.1 g/dL N 12.0-16.0 Hematocrit 40 % N 35-47 Mean Corpuscular Volume 83 fL N 80-97 Mean Corpuscular Hemoglobin 28 pg N 27-31 Mean Corpuscular HGB Conc 33 g/dL N 31-36 Red Cell Distribution Width 15 % N 10.5-15 Platelet Count 385 10^3/uL N 150-450 Mean Platelet Volume 7 um3 Low 7.4-10.4 Abs Neutrophils 7.3 10^3/uL N 1.5-7.7 Abs Lymphocytes 1.5 10^3/uL N 1.0-4.8 Abs Monocytes 0.4 10^3/uL N 0-0.8 Abs Eosinophils 0.1 10^3/uL N 0-0.6 Abs Basophils 0 10^3/uL N 0-0.2 Abs Nucleated RBC 0 10^3/uL N Granulocyte % 78.0 % N 38-83 Lymphocyte % 16.1 % Low 25-47 Monocyte % 4.6 % N 1-9 Eosinophil % 0.8 % N 0-6 Basophil % 0.5 % N 0-2 Nucleated Red Blood Cells % 0 N Laboratory test finding 11/03/2016 [facility] Lactic Acid 3.2 mmol/L High 0.5- 2.0 14 Laboratory test finding 11/03/2016 [facility] Lactic Acid 4.9 mmol/L High 0.5- 2.0 15 Comp Metabolic Panel 11/03/2016 [facility] Sodium 136 mmol/L N 133-145 Potassium 3.8 mmol/L N 3.5-5.0 Chloride 102 mmol/L N 101-111 Co2 Carbon Dioxide 20 mmol/L Low 22-32 Anion Gap 14 mmol/L High 2-11 Glucose 198 mg/dL High 70-100 Blood Urea Nitrogen 15 mg/dL N 6-24 Creatinine 0.88 mg/dL N 0.51-0.95 BUN/Creatinine Ratio 17.0 N 8-20 Calcium 9.8 mg/dL N 8.6-10.3 Total Protein 7.8 g/dL N 6.4-8.9 Albumin 4.5 g/dL N 3.2-5.2 Globulin 3.3 g/dL N 2-4 Albumin/Globulin Ratio 1.4 N 1-3 Total Bilirubin 0.70 mg/dL N 0.2-1.0 Alkaline Phosphatase 65 U/L N 34-104 Alt 36 U/L N 7-52 Ast 29 U/L N 13-39 Egfr Non- 74.9 N >60 Egfr 96.4 N >60 16 Laboratory test finding 11/03/2016 [facility] Lipase 19 U/L N 11.0-82.0 C Reactive Protein 14.00 mg/L High < 5.00 17 HCG < 0.60 mIU/mL N 18 Inr/Protime 11/03/2016 [facility] Inr 0.93 N 0.89-1.11 Urinalysis Profile 11/03/2016 [facility] Urine Color Yellow N Urine Appearance Cloudy N Urine Specific Grimsley 1.015 N 1.010-1.030 Urine pH 8.0 N 5-9 Urine Urobilinogen Negative N Negative Urine Ketones 2+ Abnormal Negative Urine Protein 2+(100 mg/dL) Abnormal Negative Urine Leukocytes Negative N Negative Urine Blood 3+ Abnormal Negative Urine Nitrite Negative N Negative Urine Bilirubin Negative N Negative Urine Glucose Negative N Negative Urine White Blood Cell Trace(0-5/hpf) N Absent Urine Red Blood Cell 2+(6-10/hpf) Abnormal Absent Urine Bacteria Absent N Absent Urine Squamous Epithelial Cell Present Abnormal Absent Urine Sperm Present Abnormal Absent Laboratory test 10/19/2016 Guerra Britta ([facility]) Free T4 0.78 ng/dL 0.75- 1.54 finding Vitamin D25 35 30-100 TSH 2.12 mIU/L 0.50-6.00 Complete Blood Count 10/19/2016 Guerra Britta ([facility]) WBC 7.0 x10^3/UL 3.6-9.6 RBC 4.53 x10^6/UL 3.90-5.70 HGB 13.2 g/dL 12.1-17.2 HCT 38 % 36-50 MCV 85.0 fL 82.2-97.4 MCH 29.1 pg 27.6-33.3 MCHC 34.4 g/dL 33.0-35.5 RDW 14.6 % High 11.6-13.7 PLT 379 x10^3/UL 150-400 MPV 6.0 fL Low 7.4-10.4 Gran # 4.6 x10^3/UL 1.5-7.2 Lymph# 2.0 x10^3/UL 0.7-4.9 Sauk# 0.4 x10^3/UL 0.1-0.9 Gran % 65.1 % 42.2-75.2 Lymph % 29.0 % 20.5-51.1 Sauk% 5.9 % 1.7-9.3 Comprehensive Metabolic 10/19/2016 Charlie Britta ([facility]) Sodium 138 mEq/L 134-149 Prof Potassium 4.5 mEq/L 3.6-5.5 Chloride 98 mEq/L 94-112 Carbon Dioxide 25 mEq/L 21-32 Glucose 112 mg/dL High 70-105 19 BUN 12 mg/dL 6-26 Creatinine 0.6 mg/dL 0.6-1.4 BUN/Creat Ratio 20.0 CALC 8.0-36.0 Calcium 10.7 mg/dL High 8.6-10.2 20 Total Protein 8.0 g/dL 6.4-8.3 Albumin 4.7 g/dL 3.8-5.5 Globulin 3.3 g/dL 2.0-4.8 A/G Ratio 1.4 CALC 0.6-2.3 Alk. Phosphatase 73 U/L 30-110 Alt (SGPT) 38 U/L High 7-35 21 Ast (Sgot) 28 U/L 5-34 Total Bilirubin 0.5 mg/dL 0.2-1.3 GFR Non- >60 ml/min/1.73m^ >=60 GFR >60 ml/min/1.73m^ >=60 Lipid Profile 10/19/2016 Charlie Britta ([facility]) Cholesterol 225 mg/dL High 120-200 Triglycerides 91 mg/dL 30-200 HDL Cholesterol 57 mg/dL 30-85 LDL (Calculated) 150 CALC High 0-129 VLDL Cholesterol 18 mg/dL 0-50 HDL Risk Factor 3.9 CALC 0.0-4.4 Laboratory test 10/19/2016 [facility] Hemoglobin A1c 6.3 % High 4.1- 5.7 finding (607)- - ([facility]) Laboratory test 07/15/2016 [facility] Hemoglobin A1c 5.7 % 4.1-5.7 finding (607)- - ([facility]) Laboratory test 06/21/2016 [facility] Lactic Acid 1.4 N 0.5-2.0 22 finding mmol/L Laboratory test 06/21/2016 [facility] C Reactive 98.50 High < 5.00 23 finding Protein mg/L Comp Metabolic 06/21/2016 [facility] Sodium 137 N 133-145 Panel mmol/L Potassium 3.9 mmol/L N 3.5-5.0 Chloride 101 mmol/L N 101-111 Co2 Carbon Dioxide 24 mmol/L N 22-32 Anion Gap 12 mmol/L High 2-11 Glucose 116 mg/dL High 70-100 Blood Urea Nitrogen 10 mg/dL N 6-24 Creatinine 1.10 mg/dL High 0.51-0.95 BUN/Creatinine Ratio 9.1 N 8-20 Calcium 9.4 mg/dL N 8.6-10.3 Total Protein 7.8 g/dL N 6.4-8.9 Albumin 4.1 g/dL N 3.2-5.2 Globulin 3.7 g/dL N 2-4 Albumin/Globulin Ratio 1.1 N 1-3 Total Bilirubin 0.90 mg/dL N 0.2-1.0 Alkaline Phosphatase 70 U/L N 34-104 Alt 19 U/L N 7-52 Ast 14 U/L N 13-39 Egfr Non- 57.9 N >60 Egfr 74.5 N >60 24 CBC Auto Diff 06/21/2016 [facility] White Blood Count 11.7 10^3/uL High 3.5- 10.8 Red Blood Count 4.39 10^6/uL N 4.0-5.4 Hemoglobin 12.4 g/dL N 12.0-16.0 Hematocrit 37 % N 35-47 Mean Corpuscular Volume 85 fL N 80-97 Mean Corpuscular Hemoglobin 28 pg N 27-31 Mean Corpuscular HGB Conc 33 g/dL N 31-36 Red Cell Distribution Width 13 % N 10.5-15 Platelet Count 371 10^3/uL N 150-450 Mean Platelet Volume 7 um3 Low 7.4-10.4 Abs Neutrophils 9.3 10^3/uL High 1.5-7.7 Abs Lymphocytes 1.5 10^3/uL N 1.0-4.8 Abs Monocytes 0.8 10^3/uL N 0-0.8 Abs Eosinophils 0 10^3/uL N 0-0.6 Abs Basophils 0 10^3/uL N 0-0.2 Abs Nucleated RBC 0 10^3/uL N Granulocyte % 79.7 % N 38-83 Lymphocyte % 13.0 % Low 25-47 Monocyte % 6.8 % N 1-9 Eosinophil % 0.2 % N 0-6 Basophil % 0.3 % N 0-2 Nucleated Red Blood Cells % 0 N Urinalysis Profile 06/21/2016 [facility] Urine Color Yellow N Urine Appearance Cloudy N Urine Specific Grimsley 1.011 N 1.010-1.030 Urine pH 6.0 N 5-9 Urine Urobilinogen Negative N Negative Urine Ketones 1+ Abnormal Negative Urine Protein 1+(30 mg/dL) Abnormal Negative Urine Leukocytes Negative N Negative Urine Blood 2+ Abnormal Negative Urine Nitrite Negative N Negative Urine Bilirubin Negative N Negative Urine Glucose Negative N Negative Urine White Blood Cell Trace(0-5/hpf) N Absent Urine Red Blood Cell 1+(3-5/hpf) Abnormal Absent Urine Bacteria Absent N Absent Urine Squamous Epithelial Cell Present Abnormal Absent CBC Auto Diff 06/20/2016 [facility] White Blood Count 10.6 10^3/uL N 3.5-10.8 Red Blood Count 4.73 10^6/uL N 4.0-5.4 Hemoglobin 13.7 g/dL N 12.0-16.0 Hematocrit 40 % N 35-47 Mean Corpuscular Volume 85 fL N 80-97 Mean Corpuscular Hemoglobin 29 pg N 27-31 Mean Corpuscular HGB Conc 34 g/dL N 31-36 Red Cell Distribution Width 14 % N 10.5-15 Platelet Count 377 10^3/uL N 150-450 Mean Platelet Volume 7 um3 Low 7.4-10.4 Abs Neutrophils 7.6 10^3/uL N 1.5-7.7 Abs Lymphocytes 2.2 10^3/uL N 1.0-4.8 Abs Monocytes 0.6 10^3/uL N 0-0.8 Abs Eosinophils 0.1 10^3/uL N 0-0.6 Abs Basophils 0.1 10^3/uL N 0-0.2 Abs Nucleated RBC 0.02 10^3/uL N Granulocyte % 71.6 % N 38-83 Lymphocyte % 20.8 % Low 25-47 Monocyte % 5.8 % N 1-9 Eosinophil % 1.2 % N 0-6 Basophil % 0.6 % N 0-2 Nucleated Red Blood Cells % 0.2 N Laboratory test finding 06/20/2016 [facility] Lactic Acid 1.4 mmol/L N 0.5-2.0 25 Urinalysis Profile 06/20/2016 [facility] Urine Color Yellow N Urine Appearance Clear N Urine Specific Grimsley 1.009 Low 1.010-1.030 Urine pH 5.0 N 5-9 Urine Urobilinogen Negative N Negative Urine Ketones Negative N Negative Urine Protein Negative N Negative Urine Leukocytes Negative N Negative Urine Blood 2+ Abnormal Negative Urine Nitrite Negative N Negative Urine Bilirubin Negative N Negative Urine Glucose Negative N Negative Urine White Blood Cell Trace(0-5/hpf) N Absent Urine Red Blood Cell Trace(0-2/hpf) N Absent Urine Bacteria Absent N Absent Urine Squamous Epithelial Cell Present Abnormal Absent Comp Metabolic Panel 06/20/2016 [facility] Sodium 139 mmol/L N 133-145 Potassium 3.6 mmol/L N 3.5-5.0 Chloride 103 mmol/L N 101-111 Co2 Carbon Dioxide 26 mmol/L N 22-32 Anion Gap 10 mmol/L N 2-11 Glucose 101 mg/dL High 70-100 Blood Urea Nitrogen 9 mg/dL N 6-24 Creatinine 0.80 mg/dL N 0.51-0.95 BUN/Creatinine Ratio 11.3 N 8-20 Calcium 9.4 mg/dL N 8.6-10.3 Total Protein 7.9 g/dL N 6.4-8.9 Albumin 4.2 g/dL N 3.2-5.2 Globulin 3.7 g/dL N 2-4 Albumin/Globulin Ratio 1.1 N 1-3 Total Bilirubin 0.40 mg/dL N 0.2-1.0 Alkaline Phosphatase 69 U/L N 34-104 Alt 22 U/L N 7-52 Ast 20 U/L N 13-39 Egfr Non- 83.7 N >60 Egfr 107.6 N >60 26 Laboratory test finding 06/20/2016 [facility] Amylase 22 U/L Low 29-103 Lipase 14 U/L N 11.0-82.0 C Reactive Protein 32.46 mg/L High < 5.00 27 Laboratory test finding 06/19/2016 [facility] Lactic Acid 3.1 mmol/L High 0.5- 2.0 28 Basic Metabolic Panel 06/19/2016 [facility] Sodium 137 mmol/L N 133-145 Potassium 4.3 mmol/L N 3.5-5.0 Chloride 106 mmol/L N 101-111 Co2 Carbon Dioxide 17 mmol/L Low 22-32 Anion Gap 14 mmol/L High 2-11 Glucose 122 mg/dL High 70-100 Blood Urea Nitrogen 12 mg/dL N 6-24 Creatinine 0.72 mg/dL N 0.51-0.95 BUN/Creatinine Ratio 16.7 N 8-20 Calcium 8.8 mg/dL N 8.6-10.3 Egfr Non- 94.5 N >60 Egfr 121.5 N >60 29 CBC Auto Diff 06/19/2016 [facility] White Blood Count 9.5 10^3/uL N 3.5-10.8 Red Blood Count 4.76 10^6/uL N 4.0-5.4 Hemoglobin 13.7 g/dL N 12.0-16.0 Hematocrit 40 % N 35-47 Mean Corpuscular Volume 85 fL N 80-97 Mean Corpuscular Hemoglobin 29 pg N 27-31 Mean Corpuscular HGB Conc 34 g/dL N 31-36 Red Cell Distribution Width 14 % N 10.5-15 Platelet Count 365 10^3/uL N 150-450 Mean Platelet Volume 7 um3 Low 7.4-10.4 Abs Neutrophils 8.0 10^3/uL High 1.5-7.7 Abs Lymphocytes 1.2 10^3/uL N 1.0-4.8 Abs Monocytes 0.3 10^3/uL N 0-0.8 Abs Eosinophils 0 10^3/uL N 0-0.6 Abs Basophils 0.1 10^3/uL N 0-0.2 Abs Nucleated RBC 0.01 10^3/uL N Granulocyte % 83.7 % High 38-83 Lymphocyte % 12.1 % Low 25-47 Monocyte % 3.1 % N 1-9 Eosinophil % 0.4 % N 0-6 Basophil % 0.7 % N 0-2 Nucleated Red Blood Cells % 0.1 N Comp Metabolic Panel 06/19/2016 [facility] Sodium 135 mmol/L N 133-145 Potassium 4.0 mmol/L N 3.5-5.0 Chloride 101 mmol/L N 101-111 Co2 Carbon Dioxide 17 mmol/L Low 22-32 Anion Gap 17 mmol/L High 2-11 Glucose 155 mg/dL High 70-100 Blood Urea Nitrogen 13 mg/dL N 6-24 Creatinine 0.80 mg/dL N 0.51-0.95 BUN/Creatinine Ratio 16.3 N 8-20 Calcium 9.3 mg/dL N 8.6-10.3 Total Protein 7.8 g/dL N 6.4-8.9 Albumin 4.2 g/dL N 3.2-5.2 Globulin 3.6 g/dL N 2-4 Albumin/Globulin Ratio 1.2 N 1-3 Total Bilirubin 0.50 mg/dL N 0.2-1.0 Alkaline Phosphatase 70 U/L N 34-104 Alt 26 U/L N 7-52 Ast 27 U/L N 13-39 Egfr Non- 83.7 N >60 Egfr 107.6 N >60 30 Laboratory test finding 06/19/2016 [facility] Lipase 17 U/L N 11.0-82.0 C Reactive Protein 22.69 mg/L High < 5.00 31 HCG < 0.60 mIU/mL N 32 Lactic Acid 5.1 mmol/L High 0.5-2.0 33 Urinalysis Profile 06/19/2016 [facility] Urine Color Yellow N Urine Appearance Cloudy N Urine Specific Grimsley 1.014 N 1.010-1.030 Urine pH 6.0 N 5-9 Urine Urobilinogen Negative N Negative Urine Ketones 1+ Abnormal Negative Urine Protein 1+(30 mg/dL) Abnormal Negative Urine Leukocytes Negative N Negative Urine Blood 3+ Abnormal Negative Urine Nitrite Negative N Negative Urine Bilirubin Negative N Negative Urine Glucose Negative N Negative Urine White Blood Cell Absent N Absent Urine Red Blood Cell 3+(>10/hpf) Abnormal Absent Urine Bacteria Absent N Absent Urine Squamous Epithelial Cell Present Abnormal Absent Laboratory test finding 05/30/2016 [facility] Magnesium 1.8 mg/dL Low 1.9-2.7 Urinalysis Profile 05/30/2016 [facility] Urine Color Yellow N Urine Appearance Clear N Urine Specific Grimsley 1.016 N 1.010-1.030 Urine pH 7.0 N 5-9 Urine Urobilinogen Negative N Negative Urine Ketones Trace Abnormal Negative Urine Protein 1+(30 mg/dL) Abnormal Negative Urine Leukocytes Negative N Negative Urine Blood Negative N Negative Urine Nitrite Negative N Negative Urine Bilirubin Negative N Negative Urine Glucose Negative N Negative Urine White Blood Cell Absent N Absent Urine Red Blood Cell Absent N Absent Urine Bacteria Absent N Absent CBC Auto Diff 05/30/2016 [facility] [facility] White Blood Count 10.0 10^3/uL N 3.5-10.8 Red Blood Count 4.95 10^6/uL N 4.0-5.4 Hemoglobin 14.2 g/dL N 12.0-16.0 Hematocrit 42 % N 35-47 Mean Corpuscular Volume 86 fL N 80-97 Mean Corpuscular Hemoglobin 29 pg N 27-31 Mean Corpuscular HGB Conc 34 g/dL N 31-36 Red Cell Distribution Width 14 % N 10.5-15 Platelet Count 384 10^3/uL N 150-450 Mean Platelet Volume 7 um3 Low 7.4-10.4 Abs Neutrophils 7.2 10^3/uL N 1.5-7.7 Abs Lymphocytes 2.1 10^3/uL N 1.0-4.8 Abs Monocytes 0.4 10^3/uL N 0-0.8 Abs Eosinophils 0.2 10^3/uL N 0-0.6 Abs Basophils 0.1 10^3/uL N 0-0.2 Abs Nucleated RBC 0.03 10^3/uL N Granulocyte % 72.5 % N 38-83 Lymphocyte % 21.0 % Low 25-47 Monocyte % 4.3 % N 1-9 Eosinophil % 1.5 % N 0-6 Basophil % 0.7 % N 0-2 Nucleated Red Blood Cells % 0.3 N Comp Metabolic Panel 05/30/2016 [facility] Sodium 135 mmol/L N 133-145 Chloride 102 mmol/L N 101-111 Co2 Carbon Dioxide 20 mmol/L Low 22-32 Glucose 141 mg/dL High 70-100 Blood Urea Nitrogen 13 mg/dL N 6-24 Creatinine 0.71 mg/dL N 0.51-0.95 BUN/Creatinine Ratio 18.3 N 8-20 Calcium 10.2 mg/dL N 8.6-10.3 Total Protein 7.9 g/dL N 6.4-8.9 Albumin 4.2 g/dL N 3.2-5.2 Globulin 3.7 g/dL N 2-4 Albumin/Globulin Ratio 1.1 N 1-3 Total Bilirubin 0.40 mg/dL N 0.2-1.0 Alkaline Phosphatase 65 U/L N 34-104 Alt 17 U/L N 7-52 Egfr Non- 96.0 N >60 Egfr 123.5 N >60 34 Potassium 4.3 mmol/L N 3.5-5.0 Anion Gap 13 mmol/L High 2-11 Ast 23 U/L N 13-39 Laboratory test 04/13/2016 [facility] Hemoglobin A1c 6.1 % High 4.1- 5.7 finding (607)- - (a) Laboratory test 01/13/2016 [facility] Hemoglobin A1c 5.9 % High 4.1- 5.7 finding (607)- - (a) Laboratory test 01/07/2016 Charlie Callejas ([facility]) TSH 1.07 0.50-6.00 finding mIU/L Free T4 1.23 ng/dL 0.75-1.54 Comprehensive Metabolic 08/29/2015 Charlie Callejas ([facility]) Sodium 140 mEq/L 134-149 Prof Potassium 4.9 mEq/L 3.6-5.5 Chloride 98 mEq/L 94-112 Carbon Dioxide 28 mEq/L 21-32 Glucose 92 mg/dL 70-105 BUN 16 mg/dL 6-26 Creatinine 0.8 mg/dL 0.6-1.4 BUN/Creat Ratio 20.0 CALC 8.0-36.0 Calcium 10.4 mg/dL High 8.6-10.2 35 Total Protein 7.4 g/dL 6.4-8.3 Albumin 4.4 g/dL 3.8-5.5 Globulin 3.0 g/dL 2.0-4.8 A/G Ratio 1.5 CALC 0.6-2.3 Alk. Phosphatase 91 U/L 30-110 Alt (SGPT) 18 U/L 7-35 Ast (Sgot) 17 U/L 5-34 Total Bilirubin 0.6 mg/dL 0.2-1.3 GFR Non- >60 ml/min/1.73m^ >=60 GFR >60 ml/min/1.73m^ >=60 Complete Blood Count 08/29/2015 Charlie Callejas ([facility]) WBC 6.0 x10^3/UL 3.6-9.6 RBC 4.75 x10^6/UL 3.90-5.70 HGB 13.8 g/dL 12.1-17.2 HCT 41 % 36-50 MCV 87.0 fL 82.2-97.4 MCH 29.1 pg 27.6-33.3 MCHC 33.5 g/dL 33.0-35.5 RDW 13.8 % High 11.6-13.7 PLT 394 x10^3/UL 150-400 MPV 6.7 fL Low 7.4-10.4 Gran # 4.1 x10^3/UL 1.5-7.2 Lymph# 1.6 x10^3/UL 0.7-4.9 Sauk# 0.3 x10^3/UL 0.1-0.9 Gran % 66.3 % 42.2-75.2 Lymph % 28.3 % 20.5-51.1 Sauk% 5.4 % 1.7-9.3 Laboratory test 08/29/2015 Charlie Callejas (a) Vitamin D25 33 30-100 finding Laboratory test 08/29/2015 [facility] Hemoglobin A1c 5.1 % 4.1-5.7 finding (607)- - ([facility],CX) Lipid Profile 08/29/2015 Charlie Callejas ([facility]) Cholesterol 305 mg/dL High 120-200 Triglycerides 220 mg/dL High 30-200 HDL Cholesterol 64 mg/dL 30-85 LDL (Calculated) 197 CALC High 0-129 VLDL Cholesterol 44 mg/dL 0-50 HDL Risk Factor 4.8 CALC High 0.0-4.4 Laboratory test finding 08/29/2015 Charlie Callejas ([facility]) TSH 0.41 mIU/L Low 0.50-6.00 Free T4 1.79 ng/dL High 0.75-1.54 CBC Auto Diff 08/06/2015 [facility] White Blood Count 8.2 10^3/uL N 4.8-10.8 Red Blood Count 4.32 10^6/uL N 4.0-5.4 Hemoglobin 12.5 g/dL N 12.0-16.0 Hematocrit 38 % N 35-47 Mean Corpuscular Volume 87 fL N 80-97 Mean Corpuscular Hemoglobin 29 pg N 27-31 Mean Corpuscular HGB Conc 33 g/dL N 31-36 Red Cell Distribution Width 15 % N 10.5-15 Platelet Count 311 10^3/uL N 150-450 Mean Platelet Volume 8 um3 N 7.4-10.4 Abs Neutrophils 6.0 10^3/uL N 1.5-7.7 Abs Lymphocytes 1.7 10^3/uL N 1.0-4.8 Abs Monocytes 0.5 10^3/uL N 0-0.8 Abs Eosinophils 0 10^3/uL N 0-0.6 Abs Basophils 0 10^3/uL N 0-0.2 Abs Nucleated RBC 0.01 10^3/uL N Granulocyte % 72.9 % N 38-83 Lymphocyte % 20.2 % Low 25-47 Monocyte % 6.1 % N 1-9 Eosinophil % 0.5 % N 0-6 Basophil % 0.3 % N 0-2 Nucleated Red Blood Cells % 0.1 N Type & Screen 08/06/2015 [facility] Patient Blood Type O Negative N Antibody Screen NEGATIVE N Laboratory test 01/16/2015 [facility] Hemoglobin A1c 5.7 % 4.1-5.7 finding (607)- - ([facility],CX) Laboratory test 08/29/2014 [facility] Hemoglobin A1c 6.0 % High 4.1- 5.7 finding (607)- - ([facility],CX) Laboratory test 05/08/2014 Guerra Britta (a) Free T4 1.25 0.75-1.54 finding ng/dL TSH 1.88 mIU/L 0.50-6.00 Comprehensive Metabolic 05/08/2014 Guerra Britta (a) Sodium 140 mEq/L 134-149 Prof Potassium 4.3 mEq/L 3.6-5.5 Chloride 104 mEq/L 94-112 Carbon Dioxide 23 mEq/L 21-32 Glucose 149 mg/dL High 70-105 36 BUN 12 mg/dL 6-26 Creatinine 0.8 mg/dL 0.6-1.4 BUN/Creat Ratio 15.0 CALC 8.0-36.0 Calcium 9.6 mg/dL 8.6-10.2 Total Protein 8.1 g/dL 6.3-8.1 Albumin 5.1 g/dL 3.8-5.5 Globulin 3.2 g/dL 2.0-4.8 A/G Ratio 1.7 CALC 0.6-2.3 Alk. Phosphatase 87 U/L 30-110 Alt (SGPT) 92 U/L High 7-35 Ast (Sgot) 81 U/L High 5-34 Total Bilirubin 0.3 mg/dL 0.2-1.3 CBC Electronic (a) 05/08/2014 [facility] WBC 8.0 3.6-9.6 (607)- - RBC 4.78 3.90-5.70 Hemoglobin ([facility]/CTX) 13.9 g/dL 12.1 - 17.2 Hematocrit ([facility]/CTX) 41.8 % 36.1 - 50.3 Platelets 347 10^3/ul 150-400 Lymph% 25.1 % 17.0-48.0 Mixed% 3.7 Neutrophils % 71.2 Mean Corpuscular Vol 88 82.2-97.4 Mean Corpuscular Hemoglobin 29.1 27.6-33.3 Mean Corpuscular Hemo Concen 33.2 32.0-36.0 RDW 14.1 High 11.6-13.7 Mean Platelet Volume 6.1 5.5-11.0 Laboratory test 05/08/2014 [facility] Hemoglobin A1c 6.3 % High 4.1- 5.7 finding (607)- - ([facility],CX) Laboratory test 01/01/2014 [facility] Throat - Beta NEGATIVE@ finding (607)- - Strep [facility] 48HRS Quickstrep negative Negative Laboratory test 09/17/2013 [facility] Hemoglobin A1c 5.6 % 4.1-5.7 finding (607)- - ([facility],CX) Glucose Random Whole Blood 96 60-105 Lipid Profile 09/17/2013 Guerra Britta ([facility]) Cholesterol 230 mg/dL High 120-200 HDL 50 mg/dL 30-85 Triglycerides 236 mg/dL High 30-200 HDL Risk Factor 4.6 CALC High 0.0-4.4 LDL (Calculated) 133 CALC High 0-129 VLDL (Calculated) 47 mg/dL 0-50 Cytology 07/09/2013 [facility] Cy RUN DATE: <SEE NOTE> Basic Metabolic 03/27/2013 Guerra Britta ([facility]) BUN 15 mg/dL 6-26 Profile Calcium 10.0 mg/dL 8.6-10.2 Chloride 95 mEq/L 94-112 Creatinine 0.9 mg/dL 0.6-1.4 Carbon Dioxide 26 mEq/L 21-32 Glucose 113 mg/dL High 70-105 38 Sodium 137 mEq/L 134-149 Potassium 4.8 mEq/L 3.6-5.5 BUN/Creat Ratio 18.0 Calc 8.0-36.0 Laboratory test finding 03/27/2013 Guerra Britta (a) TSH 1.64 mIU/L 0.50-6.00 Free T4 1.07 ng/dL 0.75-1.54 Laboratory test 03/27/2013 [facility] Hemoglobin A1c 5.6% % 4.1- 5.7 finding (607)- - ([facility],CX) Laboratory test 10/09/2012 [facility] Hemoglobin A1c 6.0 % High 4.1- 5.7 finding (607)- - ([facility],CX) Glucose, Serum ([facility]/CTX) 97 mg/dL 70-105 Ua - Non Micro (a) 10/09/2012 [facility] Appearance CLEAR (607)- - Color YELLOW Glucose NEG Bilirubin NEG Ketones NEG SP Grav 1.025 Blood NEG PH 5.5 Protein NEG Urobil 0.2 Nitrite NEG Leukocytes ([facility]) NEG Laboratory test 10/09/2012 [facility] Microalb, Random 33.9 mg/L 0.5-37 finding (607)- - ([facility]/CTX) Laboratory test 01/11/2012 Guerra Britta ([facility]) TSH 2.39 mIU/L 0.50- 6.00 finding Free T4 1.13 ng/dL 0.75-1.54 Comprehensive Metabolic 01/11/2012 Guerra Britta ([facility]) Albumin 4.5 g/dL 3.8-5.5 Prof Alk. Phos. 76 U/L 30-110 Alt (SGPT) 13 U/L 7-35 Ast (Sgot) 17 U/L 5-34 BUN 16 mg/dL 6-26 Calcium 9.7 mg/dL 8.6-10.2 Chloride 104 mEq/L 94-112 Creatinine 0.8 mg/dL 0.6-1.4 Carbon Dioxide 28 mEq/L 21-32 Glucose 123 mg/dL High 70-105 39 Sodium 135 mEq/L 134-149 Total Bilirubin 0.3 mg/dL 0.2-1.3 Total Protein 7.6 g/dL 6.3-8.1 Potassium 4.4 mEq/L 3.6-5.5 Globulin 3.1 g/dL 2.0-4.8 A/G Ratio 1.5 Calc 0.6-2.2 BUN/Creat Ratio 21.0 Calc 8.0-36.0 Lipid Profile 01/11/2012 Charlie Callejas (a) Cholesterol 208 mg/dL High 120-200 HDL 55 mg/dL 30-85 Triglycerides 130 mg/dL 30-200 HDL Risk Factor 3.8 CALC 0.0-4.0 LDL (Calculated) 128 CALC 0-129 VLDL (Calculated) 26 mg/dL 0-50 Laboratory test 01/11/2012 [facility] T-3 Total 173.0 71.0-180.0 40 finding 28 [facility] ng/[place] [address] [phone] Laboratory test 09/30/2011 [facility] [place] tsh finding Tick 04/10/2011 [facility] Tick TEST 41 Identification Identification RESULT RETU <SEE NOTE> Laboratory test 02/05/2011 [facility] Throat - Beta negative finding (607)- - Strep [facility] @48hrs Quickstrep NEG Negative Laboratory test 07/09/2010 Charlie Callejas (a) Free T3 2.84 pg/mL 2.00- 4.90 finding Free T4 1.35 ng/dL 0.75-1.54 TSH 1.09 mIU/L 0.50-6.00 Laboratory test finding 07/09/2010 [facility] , Serum NEGATIVE (607)- - Ua - Micro ([facility]) 07/09/2009 [facility] Appearance CLEAR (607)- - Color YELLOW Glucose, Urine (Fma/CMC/CTX) NEG Bilirubin NEG Ketones NEG SP Grav 1.015 Blood TRACE-LYSED # PH 5.5 Protein NEG Urobil 0.2 Nitrite NEG Leukocytes (Fma/CMC/[facility]) NEG Hyaline - /Lpf Granular - /Lpf WBC (Fma,[facility]) 2-3 RBC 3-4 Mucus (Fma/CBC/[facility]) - /Lpf Epith OCC /Lpf Bacteria 2+ /Hpf Amorphous (Fma/CMC/[facility]) - /Lpf Crystals, Fluid (Fma/CMC/CTX) - Z#Comments - Laboratory test 07/09/2009 [facility] Urine Culture No significant g 42 finding 28 [facility] <SEE NOTE> [place] [address] [phone] Laboratory test 06/18/2009 [facility] Thin Prep SEE NOTE 43 finding 28 [facility] W/HPV([place] [address] /Asc) [phone] Ua - Micro (a) 06/18/2009 [facility] Appearance clear (607)- - Color yellow Glucose neg Bilirubin neg Ketones neg SP Grav 1.020 Blood trace # 05/27/09 PH 6.5 Protein neg Urobil 0.2 Nitrite neg Leukocytes (Fma/CMC/[facility]) neg Hyaline - /Lpf Granular - /Lpf WBC (Fma,[facility]) 3-5 # RBC 3-5 # Mucus - /Lpf Epith moderate /Lpf # Bacteria 3+ /Hpf # Amorphous - /Lpf Crystals, Fluid (Fma/CMC/CTX) - Z#Comments - Laboratory test 06/18/2009 [facility]a (a) Free T4 1.13 ng/dL 0.75- 1.54 finding TSH 1.66 mIU/L 0.50-6.00 Ua - Micro (Fma) 06/11/2008 [facility] Appearance CLEAR (607)- - Color YELLOW Glucose NEG Bilirubin NEG Ketones NEG SP Grav 1.015 Blood TRACE PH 7.5 Protein NEG Urobil 0.2 Nitrite NEG Leukocytes (Fma/CMC/[facility]) NEG Hyaline - /Lpf Granular - /Lpf WBC (Fma,[facility]) 1-3 RBC 0-2 Mucus SM AMT /Lpf Epith OCC /Lpf Bacteria TRACE /Hpf Amorphous - /Lpf Crystals, Fluid (Fma/CMC/CTX) - Z#Comments - Laboratory test 06/11/2008 [facility] Thin Prep SEE NOTE 44 finding 28 [facility] W/HPV(Lsil/DAYANNA/Asc) [place] [address] [phone] Laboratory test 06/11/2008 [facility]a (Fma) TSH 0.91 0.50 45 finding mIU/L -6.0 0 Free T4 1.25 ng/dL 0.75-1.54 Laboratory test 01/06/2008 [facility] Throat - Beta NEGATIVE @ 48HRS finding (607)- - Strep Fma Flu A&B POSITIVE # Negative Laboratory test 06/08/2007 [facility] Antiviral AB Negative 46, 47 finding 28 [facility] [place] [address] [phone] RPR NON-REACTIVE Non-Reactive Laboratory test 06/08/2007 [facility] Cancelled Test SEE COMMENT 48 finding 28 [place] [address] [phone] Laboratory test 06/08/2007 [facility] Thin Prep SEE NOTE 49 finding 28 [facility] W/HPV(Lsil/DAYANNA/ [place] [id number] Asc) [phone] Ua - Non Micro 06/08/2007 [facility] Appearance CLEAR (Fma) (607)- - Color LIGHT YELLOW Glucose NEGATIVE Bilirubin NEGATIVE Ketones NEGATIVE SP Grav 1.015 Blood NEGATIVE PH 7.0 Protein NEGATIVE Urobil 0.2 Nitrite NEGATIVE Leukocytes ([facility]ma/[facility]) NEGATIVE Laboratory test 10/19/2006 [facility] TSH ([facility]ma/[facility]) 1.65 uIU/ ml 0.5-6.0 finding (607)- - Free T4 (Fma/CMC/[facility]) 1.26 ng/dL 0.75-1.54 Laboratory test 06/07/2006 [facility] Thin Prep W/HPV SEE IMAGE finding 28 [facility] (Lsil/DAYANNA/Asc) [place] [address] [phone] Laboratory test 10/20/2005 [facility] TSH 2.26 0.5-6 finding (607)- - (Fma/[facility]) uIU/ml .0 Free T4 (Fma/CMC/[facility]) 0.93 ng/dL 0.75-1.54 Hemoglobin 08/04/2005 [facility] Hemoglobin 10.3 g/dL Low 11.8-15.8 [facility] [address] [place] [address] [phone] MCV 66.4 fl Low 82.0-98.0 Hemoglobin A 98.50 % High 94.00-98.00 Hemoglobin A2 1.5 % 1.5-3.5 Interpretation * 50 CBC With Manual Dif ([facility]) 08/04/2005 [facility] WBC 11.0 High 3.6- 9.6 (607)- - RBC 4.99 3.90-5.70 Hemoglobin (Fma/CMC/CTX) 10.1 g/dL Low 12.1 - 17.2 Hematocrit (Fma/CMC/CTX) 31.1 % Low 36.1 - 50.3 Mean Corpuscular Vol 62.4 Low 82.2-97.4 Mean Corpuscular Hemaglobin 20.2 Low 27.6-33.3 Mean Corpuscular Hemo Concen 32.4 Low 33.0-36.0 RDW 16.4 High 11.6-13.7 Platelets 573. 10^3/ul High 150-400 Mean Platelet Volume 6.9 Low 7.4-10.4 Neutrophils 68 Band 8 Lymph From CMC 20 Monocytes 4 % 1.7-9.3 Eosinophils - Basophils - Metamyelocytes - Myelocytes - Promyelocyte - Blast - Atypical Lymph - NRBC - Morphology - Z#Comments - Laboratory test finding 08/04/2005 [facility] Microcytosis MODERATE (607)- - Polychrom OCC Hypochrom SLIGHT Acanthocyte FEW Elliptocyte FEW CBC With Manual Dif ([facility]) 02/02/2005 [facility] WBC 9.2 3.6-9.6 (607)- - RBC 5.23 3.90-5.70 Hemoglobin (Fma/CMC/CTX) 10.6 g/dL Low 12.1 - 17.2 Hematocrit (Fma/CMC/CTX) 33.9 % Low 36.1 - 50.3 Mean Corpuscular Vol 64.8 Low 82.2-97.4 Mean Corpuscular Hemaglobin 20.3 Low 27.6-33.3 Mean Corpuscular Hemo Concen 31.4 Low 33.0-36.0 RDW 17.3 High 11.6-13.7 Platelets 526. 10^3/ul High 150-400 Mean Platelet Volume 7.3 Low 7.4-10.4 Neutrophils - Band - Lymph From CMC - Monocytes - % Low 1.7-9.3 Eosinophils - Basophils - Metamyelocytes - Myelocytes - Promyelocyte - Blast - Atypical Lymph - NRBC - Morphology - Comments PLTS SLIGHTLY INC Laboratory test finding 02/02/2005 [facility] Elliptocyte FEW (607)- - Target Cells FEW Hypochrom SLIGHT Microcytosis MODERATE TSH (Fma/CMC/[facility]) 2.2 uIU/ml 0.5-6.0 Laboratory test finding 12/12/2003 [facility] Wound Culture FINAL [address] [place] [address] [phone] Gram Stain Additional FINAL 52 Gram Positive Susc. Panel FINAL Id Miscellaneous FINAL Iron 3 Ibc 05/02/2002 [facility] Iron, Total 8 Low 25-145 (607)- - Uibc - 90-340 Tibc 345 245-400 Iron Saturation Percent - 10-45 CBC With Diff (a) 05/02/2002 [facility] WBC 8.5 3.6-9.6 (607)- - Lymphocytes 22.6 % 20.5 - 51.1 Monocytes 5.8 % 1.7-9.3 Granulocytes 71.6 % 42.2 - 75.2 Lymphocytes 1.9 10^3/uL 0.7 - 4.9 Monocytes 0.5 10^3/uL 0.1 - 0.9 Granulocytes 6.1 10^3/uL 1.5 - 7.2 RBC 4.77 3.90-5.70 Hemoglobin 9.2 g/dL Low 12.1 - 17.2 Hematocrit 29.1 % Low 36.1 - 50.3 Mean Corpuscular Vol 61.1 Low 82.2-97.4 Mean Corpuscular Hemaglobin 19.3 Low 27.6-33.3 Mean Corpuscular Hemo Concen 31.7 Low 33.0-34.8 RDW 17.5 High 11.6-13.7 Platelets 657 10^3/ul High 150-400 Mean Platelet Volume 6.4 Low 7.4-10.4 Laboratory test 05/02/2002 [facility] Vitamin B-12 447 pg/mL 0.0 - 0.0 53 finding [address] [place] [address] [phone] Ferritin 3.0 ng/ml Low 11 - 306.8 B12 + Folate 05/02/2002 [facility] Folic 7.6 ng/ml 54 (Group) [address] Acid(Folate)Serum [place], [place] [id number] [phone] Laboratory test 04/19/2002 [facility] TSH 0.8 0.3- finding 4.5 H&H 04/19/2002 [facility] Hemoglobin 9.1 g/dL Low 12.0 -16. 0 Hematocrit 28 % Low 35-47 Laboratory test finding 04/19/2002 [facility] Ferritin 2 NG/ML Low 11-307 Laboratory test finding 10/18/2001 [facility] TSH 1.4 0.3-4.5 Comp Metabolic ([facility]) 11/19/2000 [facility] Sodium 142 mmol/L 135-145 Potassium 4.6 3.5-5.0 Chloride 103 mmol/L 95-108 Co2 23.9 21-33 Glucose 86 mg/dL 70-105 BUN 9 6-22 Creatinine 0.6 mg/dL 0.5-1.4 BUN/Creatinin Ratio 15.0 8-20 Calcium 10.1 mg/dL 8.7-10.2 Total Protein 8.5 GM/DL High 6.2-8.1 Albumin 4.5 3.6-5.4 Globulin 4.0 2-4 Albumin / Globulin Ratio 1.1 1-3 Bilirubin, Total 0.4 mg/dL 0.1-1.0 Alkaline Phosphatase 116 U/L Low 130-390 Alt (SGPT) 60 High 1-40 Ast (Sgot) 46 High 1-34 CBC With Manual Diff ([facility]) 11/19/2000 [facility] WBC 8.5 4.8-10.8 RBC 5.10 4.2-5.4 Hemoglobin 13.0 g/dL 12.0-16.0 Hematocrit 40 % 35-47 Mean Corpuscular Vol 79 79-97 Mean Corpuscular Hemaglobin 26 Low 27-31 Mean Corpuscular Hemo Concen 32 32-36 RDW 14 10.5-15 Platelets 209 CUMM 150-450 Mean Platelet Volume 8.7 7.4-10.4 Poly From [facility] 69 38-83 Band 1 0-8 Lymph From [facility] 26 5-47 Sauk From [facility] 1 0-13 Eos From [facility] 1 0-6 Atypical Lymph 2 0-6 Morphology NORMAL Basophils - Ua - Non Micro ([facility]) 11/19/2000 [facility] Color YELLOW Appearance CLEAR SP Grav 1.015 1.010-1.030 Esterase NEG Negative Nitrite NEG Negative Urobil NEG Negative Protein NEG Negative PH 6.5 5-9 Blood NEG Negative Ketones NEG Negative Bilirubin, Micro NEG Negative Glucose NEG Laboratory test 10/28/2000 [facility] TSH 1.7 0.3-4.5 finding Ua - Non Micro (a 08/14/2000 [facility] Appearance CLEAR SAUL New) (607)- - Glucose - Bilirubin - Ketones - SP Grav >=1.030 Blood LARGE Menses PH 5.5 Protein SSA1+ Urobil 0.2 Nitrite - Leukocytes - Laboratory test finding 01/26/2000 [facility] TSH 0.6 MIU/ML 0.3-4.5 Ua - Non Micro (a 10/21/1999 [facility] Appearance CLAERELIJAH New) (607)- - SP Grav 1.025 Esterase - Nitrite - pH 5.0 Protein - Glucose - Ketones - Urobil - Bilirubin - Blood - Laboratory test finding 08/12/1999 [facility] Cortisol <0.5 Am 7-25; PM 2-9 Op Profile W/ HDL+LDL 08/10/1999 [facility] Sodium 141 mmol/L 135-145 Potassium 4.7 mmol/L 3.6-5.2 Chloride 100 mmol/L 95-108 Co2 23.7 mmol/L 21-33 Glucose 106 mg/dL High 70-105 BUN 10 mg/dL 6-22 Creatinine 0.6 mg/dL 0.5-1.4 BUN/Creatinin Ratio 16.7 8-20 Uric Acid 8.1 mg/dL High 2.4-7.0 Calcium 10.1 mg/dL 8.7-10.2 Phosphorus 4.1 mg/dL 2.9-5.4 Total Protein 9.0 GM/DL High 6.2-8.1 Albumin 5.0 GM/DL 3.6-5.4 Globulin 4.0 GM/DL 2-4 Albumin / Globulin Ratio 1.3 1-3 Bilirubin, Total 0.6 mg/dL 0.1-1.0 Triglyceride 107 mg/dL 40-200 Cholesterol 247 mg/dL High 100-175 HDL-Chol 57 mg/dL 35-60 Cholesterol / HDL Ratio 4.33 AVG 1-4.44 LDL, Direct 193 mg/dL High <130 Alkaline Phosphatase 137 U/L 130-390 Alt (SGPT) 143 U/L High 1-40 Ast (Sgot) 83 U/L High 1-34 LDH 225 U/L 118-242 Iron, Total 59 g/dL 30-160 Laboratory test finding 08/10/1999 Thyroid Autoantibodies <1:10 TITER < 1:10 Thyroid Peroxidase Antibodies <35 IU/mL <35, See Detail 55 Laboratory test 07/10/1999 [facility] Thyroxine, Total 8.05 g/dL 3.0-11.0 finding (607)- - (T4) TSH 4.84 uIU/ML High 0.3 - 4.5 1 SEE RESULT BELOW Name: CHAVA CLARK : [address]: Brock Holman MD Acct: [id number] Unit: [id number] AGE: 33 Location: ED Re12/20/18 SEX: F Status: DEP ER SPEC: [id number] LUANNE: 12/20/18 [facility] DR: Brock Holman MD REQ: [id number] RECD: 12/20/18 STATUS: PRASANNA GUZMAN DR: Holly Jesus MD _ SOURCE: URINE SPDESC: ORDERED: Urine Culture Procedure Result Reported Site Urine Culture Final 12/21/18- 1603 ML No Growth (<1,000 CFU/mL) * ML - Main Lab . END OF REPORT DEPARTMENT OF PATHOLOGY, [address] [place] [address] Soren Wells M.D. Director [facility] # [id number] 2 <5.0 Negative 5.0 - 25.0 Indeterminate (Repeat testing recommended after 72 hours) >25.0 Positive Perimenopausal women can display HCG levels of up to 20 mIU/mL 3 Because ethnic data is not always readily available, this report includes an eGFR for both -Americans and non- Americans. The National Kidney Disease Education Program (NKDEP) does not endorse the use of the MDRD equation for patients that are not between the ages of 18 and 70, are , have extremes of body size, muscle mass, or nutritional status, or are non- or non-. According to the National Kidney Foundation, irrespective of diagnosis, the stage of the disease is based on the level of kidney function: Stage Description GFR(mL/min/1.73 m(2)) 1 Kidney damage with normal or decreased GFR 90 2 Kidney damage with mild decrease in GFR 60-89 3 Moderate decrease in GFR 30-59 4 Severe decrease in GFR 15-29 5 Kidney failure <15 (or dialysis) 4 SEE RESULT BELOW Name: JOSE LUISCHAVA WILLIAMSON : [address]: Marily ALLEN C Acct: [id number] Unit: [id number] AGE: 33 Location: [facility] Re07/18/18 SEX: F Status: REG REF SPEC: [id number] LUANNE: 07/18/18 [facility] DR: Marily ALLEN C REQ: [id number] RECD: 07/18/18 STATUS: YOUNG GUZMAN DR: Holly Jesus MD _ ORDERED: TP IMAGE ANALYS, HPV/Thin Prep COMMENTS: [id number] Negative for Intraepithelial lesion or Malignancy Date Time Test Result Flag (u) Normal Range 07/18/1834 @ HPV RNA Negative Negative @ @ The high-risk HPV types detected by the assay include: 16, @ 18, 31, 33, 35, 39, 45, 51, 52, 56, 58, 59, 66, and 68. A. Ectocervical/Endocervical Specimen Adequacy: Satisfactory of evaluation Transformation zone component identified Patient Information: HPV: High risk HPV RNA testing regardless of pap results. Actual Specimen Date: 07/18/18 Last Menstrual Date: 06/28/18 Date of Last Specimen: 07/06/16 Signed by and Reported on: ANTONIO Ferrera(ASCP) 1504 This Pap test was evaluated with the assistance of the [employer] Test Imaging System. Due to cytologic findings at the sand control worker microscope, comprehensive manual rescreening by a City Treasurer may be required. The Pap Smear is a screening test designed to aid in the detection of premalignant and malignant conditions of the uterine cervix. It is not a diagnostic procedure and should not be used as the sole means of detecting cervical cancer. Both false- positive and false- negative reports do occur. Depending on your risk status, a Pap smear should be obtained and evaluated every 1-3 years. END OF REPORT DEPARTMENT OF PATHOLOGY, [address] [place] [address] Soren Wells M.D. Director [facility] # [id number] 5 consistent w/ previous results 6 consistent w/ previous results 7 consistent w/ previous results 8 consistent w/ previous results 9 If is still suspected, please repeat test after 48 to 72 hours. This test detects intact HCG only and is indicated for the early detection of . 10 [id number] off plasma from edta 11 Interpretation Intact PTH Calcium (pg/mL) (mg/dL) Normal 15 - 65 8.6 - 10.2 Primary Hyperparathyroidism >65 >10.2 Secondary Hyperparathyroidism >65 <10.2 Non-Parathyroid Hypercalcemia <65 >10.2 Hypoparathyroidism <15 < 8.6 Non-Parathyroid Hypocalcemia 15 - 65 < 8.6 12 [facility] Severe Sepsis and Septic Shock Management Bundle Measure requires all lactic acids initially measuring >2.0 mmol/L be repeated. 13 Therapeutic target for the treatment of diabetes Mellitus patients is <7% HBA1C, and in selective patients <6.0%.Please refer to [place] [employer] Diabetic care guidelines for further information. 14 Critical Result LACT:3.2 Called to CORRIE Britton at: 10:40:34 by:[id number] Read back by:CORRIE ROWLEY Severe Sepsis and Septic Shock Management Bundle Measure requires all lactic acids initially measuring >2.0 mmol/L be repeated. 15 Critical Result LACT:4.9 Called to CORRIE Britton at: 09:17:36 by:[id number] Read back by:CORRIE ROWLEY Severe Sepsis and Septic Shock Management Bundle Measure requires all lactic acids initially measuring >2.0 mmol/L be repeated. 16 Because ethnic data is not always readily available, this report includes an eGFR for both -Americans and non- Americans. The National Kidney Disease Education Program (NKDEP) does not endorse the use of the MDRD equation for patients that are not between the ages of 18 and 70, are , have extremes of body size, muscle mass, or nutritional status, or are non- or non-. According to the National Kidney Foundation, irrespective of diagnosis, the stage of the disease is based on the level of kidney function: Stage Description GFR(mL/min/1.73 m(2)) 1 Kidney damage with normal or decreased GFR 90 2 Kidney damage with mild decrease in GFR 60-89 3 Moderate decrease in GFR 30-59 4 Severe decrease in GFR 15-29 5 Kidney failure <15 (or dialysis) 17 Acute inflammation: >10.00 18 <5.0 Negative 5.0 - 25.0 Indeterminate (Repeat testing recommended after 72 hours) >25.0 Positive Perimenopausal women can display HCG levels of up to 20 mIU/mL 19 RESULTS VERIFIED BY REPEAT ANALYSIS 20 RESULTS VERIFIED BY REPEAT ANALYSIS 21 RESULTS VERIFIED BY REPEAT ANALYSIS 22 [facility] Severe Sepsis and Septic Shock Management Bundle Measure requires all lactic acids initially measuring >2.0 mmol/L be repeated. 23 Acute inflammation: >10.00 24 Because ethnic data is not always readily available, this report includes an eGFR for both -Americans and non- Americans. The National Kidney Disease Education Program (NKDEP) does not endorse the use of the MDRD equation for patients that are not between the ages of 18 and 70, are , have extremes of body size, muscle mass, or nutritional status, or are non- or non-. According to the National Kidney Foundation, irrespective of diagnosis, the stage of the disease is based on the level of kidney function: Stage Description GFR(mL/min/1.73 m(2)) 1 Kidney damage with normal or decreased GFR 90 2 Kidney damage with mild decrease in GFR 60-89 3 Moderate decrease in GFR 30-59 4 Severe decrease in GFR 15-29 5 Kidney failure <15 (or dialysis) 25 [facility] Severe Sepsis and Septic Shock Management Bundle Measure requires all lactic acids initially measuring >2.0 mmol/L be repeated. 26 Because ethnic data is not always readily available, this report includes an eGFR for both -Americans and non- Americans. The National Kidney Disease Education Program (NKDEP) does not endorse the use of the MDRD equation for patients that are not between the ages of 18 and 70, are , have extremes of body size, muscle mass, or nutritional status, or are non- or non-. According to the National Kidney Foundation, irrespective of diagnosis, the stage of the disease is based on the level of kidney function: Stage Description GFR(mL/min/1.73 m(2)) 1 Kidney damage with normal or decreased GFR 90 2 Kidney damage with mild decrease in GFR 60-89 3 Moderate decrease in GFR 30-59 4 Severe decrease in GFR 15-29 5 Kidney failure <15 (or dialysis) 27 Acute inflammation: >10.00 28 Critical Result LACT:3.1 Called to [id number] at: 13:00:02 by:[id number] Read back by:[id number] [facility] Severe Sepsis and Septic Shock Management Bundle Measure requires all lactic acids initially measuring >2.0 mmol/L be repeated. 29 Because ethnic data is not always readily available, this report includes an eGFR for both -Americans and non- Americans. The National Kidney Disease Education Program (NKDEP) does not endorse the use of the MDRD equation for patients that are not between the ages of 18 and 70, are , have extremes of body size, muscle mass, or nutritional status, or are non- or non-. According to the National Kidney Foundation, irrespective of diagnosis, the stage of the disease is based on the level of kidney function: Stage Description GFR(mL/min/1.73 m(2)) 1 Kidney damage with normal or decreased GFR 90 2 Kidney damage with mild decrease in GFR 60-89 3 Moderate decrease in GFR 30-59 4 Severe decrease in GFR 15-29 5 Kidney failure <15 (or dialysis) 30 Because ethnic data is not always readily available, this report includes an eGFR for both -Americans and non- Americans. The National Kidney Disease Education Program (NKDEP) does not endorse the use of the MDRD equation for patients that are not between the ages of 18 and 70, are , have extremes of body size, muscle mass, or nutritional status, or are non- or non-. According to the National Kidney Foundation, irrespective of diagnosis, the stage of the disease is based on the level of kidney function: Stage Description GFR(mL/min/1.73 m(2)) 1 Kidney damage with normal or decreased GFR 90 2 Kidney damage with mild decrease in GFR 60-89 3 Moderate decrease in GFR 30-59 4 Severe decrease in GFR 15-29 5 Kidney failure <15 (or dialysis) 31 Acute inflammation: >10.00 32 <5.0 Negative 5.0 - 25.0 Indeterminate (Repeat testing recommended after 72 hours) >25.0 Positive Perimenopausal women can display HCG levels of up to 20 mIU/mL 33 [facility] Severe Sepsis and Septic Shock Management Bundle Measure requires all lactic acids initially measuring >2.0 mmol/L be repeated. [facility] Severe Sepsis and Septic Shock Management Bundle Measure requires all lactic acids initially measuring >2.0 mmol/L be repeated. Verbal to [id number] by [id number] at 1140 on 06/19/16. Results read back accurately. --- 06/19/16 1301 --- Lactic Acid previously reported as: 5.1 *P mmol/L [facility] Severe Sepsis and Septic Shock Management Bundle Measure requires all lactic acids initially measuring >2.0 mmol/L be repeated. [facility] Severe Sepsis and Septic Shock Management Bundle Measure requires all lactic acids initially measuring >2.0 mmol/L be repeated. 34 Because ethnic data is not always readily available, this report includes an eGFR for both -Americans and non- Americans. The National Kidney Disease Education Program (NKDEP) does not endorse the use of the MDRD equation for patients that are not between the ages of 18 and 70, are , have extremes of body size, muscle mass, or nutritional status, or are non- or non-. According to the National Kidney Foundation, irrespective of diagnosis, the stage of the disease is based on the level of kidney function: Stage Description GFR(mL/min/1.73 m(2)) 1 Kidney damage with normal or decreased GFR 90 2 Kidney damage with mild decrease in GFR 60-89 3 Moderate decrease in GFR 30-59 4 Severe decrease in GFR 15-29 5 Kidney failure <15 (or dialysis) 35 RESULTS VERIFIED BY REPEAT ANALYSIS 36 RESULTS VERIFIED BY REPEAT ANALYSIS 37 RUN DATE: 07/10/13 [facility] LAB LIVE PAGE 1 RUN TIME: [id number] [place], [place] [address] Specimen Inquiry Name: CHAVA CLARK : [address]: Marily Chandler CNP Acct: [id number] Unit: [id number] AGE: 28 Location: [facility] Re07/09/13 SEX: F Status: REG REF SPEC: [id number] LUANNE: 07/09/13 [facility] DR: Marily Pedro Ramesh LOAD CHECKER REQ: [id number] RECD: 07/09/13 STATUS: YOUNG GUZMAN DR: Holly Jesus MD _ ORDERED: IMAGE ANALYSIS FINAL DIAGNOSIS Negative for Intraepithelial lesion or Malignancy A. Ectocervical/Endocervical Specimen Adequacy: Satisfactory of evaluation Transformation zone component identified Patient Information: HPV: Thin Layer Pap Test w/reflex to high risk HPV DNA testing when ASCUS Actual Specimen Date: 07/09/13 Last Menstrual Date: 06/27/13 Date of Last Specimen: 07/05/12 Signed (signature on file) ANTONIO Morton (ASCP) 07/10/13 1203 This Pap test was evaluated with the assistance of the ThinPrep Test Imaging System. Due to cytologic findings at the sand control worker microscope, comprehensive manual rescreening by a City Treasurer may be required. The Pap Smear is a screening test designed to aid in the detection of premalignant and malignant conditions of the uterine cervix. It is not a diagnostic procedure and should not be used as the sole means of detecting cervical cancer. Both false- positive and false- negative reports do occur. Depending on your risk status, a Pap smear shoudl be obtained and evaluated every 1-3 years. END OF REPORT * ML=Testing performed at Main Lab DEPARTMENT OF PATHOLOGY, [address] [place] [address] oSren Wells M.D. Director [facility] Permit #[id number] 38 RESULT YOLI'D 39 RESULT YOLI'D 40 FASTING; 1 sst 41 TEST RESULT RETURNED FROM REFERENCE LABORATORY. HARDCOPY REPORT TO BE SENT TO PHYSICIAN(S) OFFICE. 42 No significant growth. 43 [employer] DEPARTMENT OF PATHOLOGY or Extension [id number] [facility] REPORT PATIENT: CHAVA CLARK : 1985 AGE: 24 Y SEX: F ACCT: [id number] PROCEDURE DATE: 06/18/2009 DATE RECEIVED: 06/20/2009 REQUESTING PHYSICIAN: OMA SHIRLEY NP LOCATION: [facility] Case No. [id number] PATIENT DATA: [id number] SPECIMEN SUBMITTED: * * (HPVII) THIN PREP W/HPV (LSIL/ASC/DAYANNA) * * ENDOCERVICAL RELEVANT HISTORY: LMP: 05/27/2009 Prev.normal: - WNL SPECIMEN ADEQUACY SATISFACTORY FOR EVALUATION, ENDOCERVICAL TRANSFORMATION ZONE COMPONENT PRESENT GENERAL CATEGORIZATION NEGATIVE FOR INTRAEPITHELIAL LESIONS OR MALIGNANCY ADDITIONAL COPIES SENT TO: Screened/Rescreened by: Electronically Signed by: ANTONIO DEL TORO(ASCP) Signed Date and Time: 06/23/2009 11:59 Thin Prep Pap tests are examined with an FDA-approved location-guidance system (20306). Performed @ [employer], [employer] [address] [place] [id number] "" 44 [employer] DEPARTMENT OF PATHOLOGY or Extension 74[address] [facility] CYT[facility] REPORT PATIENT: CHAVA CLARK : 1985 AGE: 23 Y SEX: F ACCT: [id number] PROCEDURE DATE: 06/11/2008 DATE RECEIVED: 06/12/2008 REQUESTING PHYSICIAN: OMA SHIRLEY NP LOCATION: [facility] Case No. [id number] PATIENT DATA: [id number] lmp: 2 weeks ago SPECIMEN SUBMITTED: * * (HPVII) THIN PREP W/HPV (LSIL/ASC/DAYANNA) * * ENDOCERVICAL RELEVANT HISTORY: Contraceptive: BC BILL Previous smear date: 06/08/2007 Prev.normal: 06/08/07 SPECIMEN ADEQUACY SATISFACTORY FOR EVALUATION, ENDOCERVICAL TRANSFORMATION ZONE COMPONENT PRESENT GENERAL CATEGORIZATION NEGATIVE FOR INTRAEPITHELIAL LESIONS OR MALIGNANCY ADDITIONAL COPIES SENT TO: Screened/Rescreened by: Electronically Signed by: ANTONIO GOMEZ(ASCP) Signed Date and Time: 06/14/2008 09:15 Thin Prep Pap tests are examined with an FDA-approved location-guidance system (15163). Performed @ [employer], [employer] [address] [place] [address] 45 FASTING 46 TEST CANCELLED TEST WAS ADDED ON 06/09/07 AT 09:21 BY FJMaggy. 2 SST URINE 47 Negative: Non-reactive by ICMA Positive: Repeatedly reactive by ICMA. Refer to [facility] confirmatory test for final interpretation. . Physician should addiction counselor the patient about result significance. Patient information should be kept strictly confidential. 48 The following test(s) has been cancelled with a brief explanation for the cancellation: Chlamydia & GC cancelled due to no specimen submitted for testing Client notified 49 [employer] DEPARTMENT OF PATHOLOGY or Extension 8[address] [facility] CYT[facility]Y REPORT PATIENT: CHAVA CLARK : 1985 AGE: 22 Y SEX: F ACCT: [id number] PROCEDURE DATE: 06/08/2007 DATE RECEIVED: 06/09/2007 REQUESTING PHYSICIAN: OMA SHIRLEY NP LOCATION: [facility] Case No. [id number] PATIENT DATA: [id number] SPECIMEN SUBMITTED: * * (HPVII) THIN PREP W/HPV (LSIL/ASC/DAYANNA) * * ENDOCERVICAL RELEVANT HISTORY: LMP: 06/01/2007 Contraceptive: BC PILL Previous smear date: 06/07/2006 Prev.normal: 06/07/06 SPECIMEN ADEQUACY SATISFACTORY FOR EVALUATION, ENDOCERVICAL TRANSFORMATION ZONE COMPONENT PRESENT GENERAL CATEGORIZATION NEGATIVE FOR INTRAEPITHELIAL LESIONS OR MALIGNANCY ADDITIONAL COPIES SENT TO: Screened/Rescreened by: Electronically Signed by: ANTONIO DOYLE(ASCP) Signed Date and Time: 06/13/2007 13:52 Thin Prep Pap tests are examined with an FDA-approved location-guidance system (60784). Performed @ [employer] [address] [place] [id number] 50 Normal hemoglobin electrophoresis. If the iron studies are normal, then the low MCV may be due to an alpha thalassemia trait. Reviewed by Dr. Eleonora Cristina, Pathologist. 51 Source: WOUND Isolate #1: Staphylococcus aureus Moderate growth ANTIBIOTIC PADMINI Inter Cost Amoxicillin/CA Susceptible 4 Ampicillin/sulbactam <=2 Susceptible 9 Cefaclor Susceptible Cefazolin <=4 Susceptible 4 Ciprofloxacin <=0.5 Susceptible PO 2, IV 4 Clindamycin <=0.25 Susceptible 4 Erythromycin >=8 Resistant PO 1, IV 3 Gentamicin <=0.5 Susceptible 3 Oxacillin 0.5 Susceptible 5 Penicillin-G >=0.5 Resistant 4 Tetracycline <=1 Susceptible 1 Vancomycin <=1 Susceptible 4 Levofloxacin 0.25 Susceptible PO 2, IV 4 Nitrofurantoin <=16 Susceptible 1, UR* --- COST CODES: The cost codes for the antibiotics reported provide the relative costs of these antibiotics per day of therapy. The higher the number, the more expensive the antibiotic is. NOTE: 'UR' indicates that the antibiotic is appropriate for the treatment of urinary tract infections only. --- If additional antimicrobial susceptibility test results for hospital inpatients are needed for antibiotics not listed on this report, please contact the Microbiology laboratory at [phone]. --- 52 Source: WOUND NO EPI, MANY WBC, NO ORGANISMS SEEN 53 Deficient (Low): <145 pg/ml Indeterminate: 145-180 pg/ml Normal: 181-914 pg/ml . 54 . Greater than or equal to 3.0 is normal. . Effective 5 please note change in Reference range due to change in instrumentation. . 55 THYROIDGLOBULIN AND/OR THYROID PEROXIDASE AUTOANTIBODIES OCCUR IN SERA OF MOST AUTOIMMUNE THYROID DISEASE PATIENTS. INDIVIDUALS WITH THYROID PEROXIDASE AUTOANTIBODIES GO ON TO DEVELOP HYPOTHYROIDISM AT A RATE OF ABOUT 3% PER YEAR. Procedures Date Code Description Status 03/22/2018 18846 Finger Or Heel Stick Completed 11/24/2017 11715 Finger Or Heel Stick Completed 06/01/2017 98903 Finger Or Heel Stick Completed 07/15/2016 62848 Finger Or Heel Stick Completed 04/13/2016 39699 Finger Or Heel Stick Completed 01/13/2016 78759 Finger Or Heel Stick Completed 01/16/2015 78312 Finger Or Heel Stick Completed 08/29/2014 99832 Finger Or Heel Stick Completed 07/30/2014 97560 Vision Test- screening test of visual acuity, Completed bruce, ryan 02/10/2011 86375 Pulse Oximetry Completed Encounters Type Date Location Provider Dx Diagnosis Office Visit 09/13/2018 Main Office Holly Jesus, E11.9 Type 2 diabetes 11:20a M.D. mellitus without complications E66.8 Other obesity Z23 Encounter for immunization Office Visit 07/13/2018 9:40a Main Office Holly Clark E11.9 Type 2 diabetes Stephen Jesus mellitus without complications F43.22 Adjustment disorder with anxiety Office Visit 03/22/2018 11:00a Main Office Holly Clark E11.9 Type 2 diabetes Stephen Jesus mellitus without complications E03.9 Hypothyroidism, unspecified F43.23 Adjustment disorder with mixed anxiety and depressed mood Office Visit 11/24/2017 10:40a [facility] Office Holly Clark Z00.01 Encounter for Stephen Jesus general adult medical exam w abnormal findings E11.9 Type 2 diabetes mellitus without complications E03.9 Hypothyroidism, unspecified F43.23 Adjustment disorder with mixed anxiety and depressed mood E66.01 Morbid (severe) obesity due to excess calories Office Visit 06/01/2017 11:20a Main Office Holly Clark E11.9 Type 2 diabetes Stephen Jesus mellitus without complications E03.9 Hypothyroidism, unspecified F43.23 Adjustment disorder with mixed anxiety and depressed mood Office Visit 03/02/2017 Main Office Holly Clark E11.9 Type 2 diabetes 11:20a Stephen Jesus mellitus without complications Office Visit 02/07/2017 Main Office Holly Clark K80.80 Other cholelithiasis 5:50p Stephen Jesus without obstruction Office Visit 10/19/2016 [facility] Holly Clark Z00.00 Encntr for general 10:00a Office Stephen Jesus adult medical exam w/o abnormal findings E11.9 Type 2 diabetes mellitus without complications E66.01 Morbid (severe) obesity due to excess calories E03.9 Hypothyroidism, unspecified E55.9 Vitamin D deficiency, unspecified F43.23 Adjustment disorder with mixed anxiety and depressed mood Office Visit 07/15/2016 3:20p [place] [facility] Holly Clark R73.01 Impaired Stephen Jesus fasting glucose F43.21 Adjustment disorder with depressed mood E66.01 Morbid (severe) obesity due to excess calories Office Visit 04/13/2016 9:40a [facility] Holly Clark R73.01 Impaired Stephen Jesus fasting glucose F43.21 Adjustment disorder with depressed mood H10.89 Other conjunctivitis Office Visit 01/13/2016 2:40p [facility] Holly Clark E03.8 Other specified Office Stephen Jesus hypothyroidism R73.01 Impaired fasting glucose J01.80 Other acute sinusitis Office Visit 08/29/2015 10:40a Main Office Holly Clark E11.9 Type 2 diabetes Stephen Jesus mellitus without complications E03.9 Hypothyroidism, unspecified F32.9 Major depressive disorder, single episode, unspecified E55.9 Vitamin D deficiency, unspecified Office Visit 01/16/2015 2:40p [facility] Holly Clark 250.00 Diabetes Mellitus Stephen Jesus W/O Compl Type II Or Unspec Controlled 278.01 Obesity Morbid 311 Depressive Disorder Not Elsewhere Spec 244.9 Hypothyroidism Other Unspec V22.2 State Incidental Normal Office Visit 10/11/2014 3:00p Main Office Holly Jesus, 278.01 Obesity Morbid M.D. 311 Depressive Disorder Not Elsewhere Spec 300.00 Anxiety State Unspec 250.00 Diabetes Mellitus W/O Compl Type II Or Unspec Controlled Office Visit 08/29/2014 2:00p Main Office Holly Jesus, 278.01 Obesity Morbid M.D. 250.00 Diabetes Mellitus W/O Compl Type II Or Unspec Controlled 300.00 Anxiety State Unspec Office Visit 07/30/2014 1:00p [facility] Holly Clark V70.0 Examination Stephen Jesus General Medical Routine AT Health Care Facility 250.00 Diabetes Mellitus W/O Compl Type II Or Unspec Controlled 244.9 Hypothyroidism Other Unspec 278.01 Obesity Morbid 311 Depressive Disorder Not Elsewhere Spec 268.9 Vitamin D Deficiency Unspec V06.1 Ckuhxhiker-Nkbwxpr-Pbpgtrps Combined (DTaP) v06.5 Tetanus Diphtheria (DT) V72.0 Examination Eyes & Vision Office Visit 05/08/2014 2:15p Main Office Daysi 244.9 Hypothyroidism Other [place], Afnp-C Unspec 278.01 Obesity Morbid Office Visit 01/01/2014 10:15a Main Office Vaelria Alaniz, KAEL 462 Pharyngitis Acute 465.9 URI Upper Respiratory Infections Acute Unspec Sites Office Visit 09/17/2013 10:30a Main Office Daysi Ramsey, 278.01 Obesity Morbid Afnp-C 790.21 Impaired Fasting Glucose Office Visit 05/16/2013 1:00p Main Office Daysi Ramsey, 790.21 Impaired Fasting Afnp-C Glucose 278.01 Obesity Morbid Office Visit 04/10/2013 6:00p Main Office Oma Shirley, 680.8 Carbuncle & Afnp-C Furuncle Spec Sites Other Office Visit 01/10/2013 9:30a Main Office Daysi Ramsey, 278.00 Obesity Unspec Afnp-C V12.21 Personal History Of Gestational Diabetes Office Visit 10/09/2012 9:30a Main Office Daysi Ramsey, 278.01 Obesity Morbid Afnp-C 790.21 Impaired Fasting Glucose 311 Depressive Disorder Not Elsewhere Spec Office Visit 04/06/2012 1:00p Main Office Heather Jose, 278.01 Obesity Morbid M.DJennifer 790.21 Impaired Fasting Glucose Office Visit 01/06/2012 1:40p Main Office Heather Vinson 311 Depressive Disorder Stephen Jose Not Elsewhere Spec 244.9 Hypothyroidism Other Unspec 278.01 Obesity Morbid Office Visit 12/02/2011 1:00p Main Office Heather Vinson 244.9 Hypothyroidism Other Stephen Jose Unspec 278.01 Obesity Morbid 311 Depressive Disorder Not Elsewhere Spec Office Visit 02/10/2011 11:30a Main Office Oma Shirley, 461.9 Sinusitis Acute Afnp-C Unspec Office Visit 02/05/2011 11:40a Main Office Amanda Vogt 465.9 URI Aureliano Grimm M.D. 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 626.4 Irregular Menstrual Cycle Office Visit 07/09/2009 9:00a Main Office Oma Shirley, 599.70 Hematuria , Afnp-C Unspecified Office Visit 06/18/2009 10:30a Main Office Oma Shirley, V72.31 Routine Mason Tender Restoration Labor Afnp-C Examination 244.9 Hypothyroidism Other Unspec 599.70 Hematuria, Unspecified Office Visit 06/11/2008 10:00a Main Office Oma Shirley, V72.31 Routine Mason Tender Restoration Labor Afnp-C Examination 244.9 Hypothyroidism Other Unspec 599.7 Hematuria Office Visit 01/06/2008 11:30a Main Office Salbador Newton, 465.9 URI Upper MJenniferDJennifer Respiratory Infections Acute Unspec Sites 462 Pharyngitis Acute Office Visit 06/08/2007 2:30p Main Office Oma Shirley, V72.31 Routine Mason Tender Restoration Labor Afnp-C Examination V74.5 Screening Examination Venereal Disease Office Visit 03/28/2007 7:40p Main Office Catrachita Washington, 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 995.3 Allergy Unspec 372.30 Conjuctivitis Unspec Office Visit 06/07/2006 Main Office Lucina Platt, V72.31 Routine Mason Tender Restoration Labor 7:30p CALENDER WIND UP TENDER-C Examination Office Visit 04/22/2006 Anusha hua 244.9 Hypothyroidism Other 2:20p Office Stephen Hinson Unspec Office Visit 02/18/2006 [facility] Monique hua 845.00 Sprains & Strains 1:10p Office Stephen Hinson Ankle Unspec Site Office Visit 01/18/2006 [facility] Monique hua 845.00 Sprains & Strains 10:00a Office Stephen Hinson Ankle Unspec Site Office Visit 08/04/2005 Main Office Monique hua 244.9 Hypothyroidism Other 5:00p Stephen Hinson Unspec 280.9 Iron Deficiency Anemia Unspec Office Visit 03/01/2005 5:20p Main Office Monique hua 782.1 Rash & Other Stephen Hinson Nonspec Skin Eruption 244.9 Hypothyroidism Other Unspec Office Visit 02/02/2005 6:00p Main Office Monique Peña, 285.9 Anemia Unspec M.D. 244.9 Hypothyroidism Other Unspec 280.9 Iron Deficiency Anemia Unspec Office Visit 10/14/2004 Main Office Monique hua 558.9 Gastroenteritis & 12:10p Stephen Hinson Colitis Noninfectious Other Office Visit 03/03/2004 Main Office Oma Shirley, 530.81 Esophageal Reflux 7:15p Afnp-C Office Visit 12/12/2003 Anusha Vizcarra 958.3 Trauma Early 11:20a Office Stephen Fay Complication Posttraumatic Wound Infection NEC Office Visit 12/09/2003 Main Office Aline Bailey, 682.9 Cellulitis & Abscess 7:00p CALENDER WIND UP TENDER Unspec Site Office Visit 05/02/2002 Main Office Salbador Newton 4:10p Stephen Office Visit 11/15/2001 Main Office Daysi 1:00p Jamila Ramsey-C Office Visit 11/02/2000 Anusha Machado 4:00p Office Stephen Alvarez Office Visit 09/05/2000 Main Office Aline Bailey 7:00p CALENDER WIND UP TENDER Office Visit 08/11/2000 Main Office Aline Lynn, 4:15p [facility] Plan of Treatment 12/26/2018 - Holly Jesus M.D.E11.9 Type 2 diabetes mellitus without complicationsNew Labs:Hemoglobin A1c, Ordered: 12/26/18Comments:hemoglobin a1c= 6.1. Diabetes is well controlled. You are doing great with your weight, food program. Congratulations! Will do hemoglobin a1c twice yearly from now on.Follow up:3 months.F43.23 Adjustment disorder with mixed anxiety and depressed moodComments:Please discuss with Emilee regarding the clonidine. It is important for you to stay on the lisinoprilfor kidney protection in diabetes. It is possible that the lisinopril AND the clonidine will bring your blood pressure down to low. I would prefer you to stay on the lisinopril and try a different medication to help with sleep. would consider only melatoninother options include valerian, trazodone,and others. If you continue to be weak, dizzy or lightheaded too often, it is ok to stop the lisinopril for a while, and the clonidine should be changed to something else.E03.9 Hypothyroidism, unspecifiedNew Labs:TSH ([facility]), Ordered: 12/26/18Comments: stable.E66.01 Morbid (severe) obesity due to excess caloriesComments:you are doing fantastic with your weight.K80.80 Other cholelithiasis without obstructionComments:Kidney stones - warm to hot water with lemon juice every morning to prevent kidney stones.AllComments:~B_~U_Medication Management~b_~u_ Patient Understands medications she's taking? Yes No Are there Barriers to Adherence? Yes No Has the patient been asked about herbal supplements and therapies, and OTC meds? Yes No ~B_~U_Care Plan~b_~u_1. Patient has been queried about patient's goals/preferences and functional/ lifestyle goals at relevant visits. If relevant, describe: na2. Treatment goals as explained to the patient: above3. Are there barriers to meeting treatment goals? Yes No If Yes, please describe:4. Self-Management goals as described to the patient: Yes No as above.
--- NOTE | 2018-12-29 16:37 | ED ---
GI/ HPI - HPI Summary HPI Summary: Patient is a 33 y/o F presenting to ED with complaints of right flank pain with sudden onset yesterday at 0800. She endorses N/V as well. Patient also notes intermittent radiation of pain to abdomen. In room, pain is rated 7-8/10. She reports three previous episodes of kidney stones. Most recent episode was , states that kidney stone was 2 cm. LNMP was 12/10/18, states that she was negative for test when she was here 12/20/18. Nothing is noted to aggravate/alleviate Sx. Patient took Percocet eight hours ago. Home medications and allergies are reviewed. - History of Current Complaint Chief Complaint: EDFlankPain Time Seen by Provider: 12/29/18 16:35 Stated Complaint: FLANK PAIN/VOMITING Hx Obtained From: Patient Hx Last Menstrual Period: 01/28/16 Onset/Duration: Started Days Ago - yesterday 0800, Still Present Timing: Constant, Intermittent - radiation of pain, Lasting Days - yesterday 0800 Current Severity: Severe - 7-8/10 Pain Intensity: 8 Location of Pain: Radiates to: - abdomen, Flank - right Associated Signs and Symptoms: Positive: Nausea, Vomiting, Flank Pain - right Aggravating Factor(s): Nothing Alleviating Factor(s): Nothing - Additional Pertinent History Primary Care Physician: ARLYN - Allergy/Home Medications Allergies/Adverse Reactions: Allergies Allergy/AdvReac Type Severity Reaction Status Date / Time adhesive Allergy Rash Verified 12/20/18 18:06 morphine Allergy Vomiting Verified 12/20/18 18:06 povidone-iodine Allergy Rash Verified 12/20/18 18:06 [From Betadine] PMH/Surg Hx/FS Hx/Imm Hx Endocrine/Hematology History: Reports: Hx Diabetes - borderline, Hx Thyroid Disease, Hx Anemia - hx of. no problems now Cardiovascular History: Reports: Hx Hypertension GI History: Reports: Hx Gastroesophageal Reflux Disease Denies: Other GI Disorders History: Reports: Hx Kidney Stones - till has some kidney stones Sensory History: Denies: Hx Contacts or Glasses, Hx Hearing Aid Opthamlomology History: Denies: Hx Contacts or Glasses Neurological History: Reports: Other Neuro Impairments/Disorders - hx of vertigo r/t sinus infection Psychiatric History: Reports: Hx Anxiety, Hx Depression - Surgical History Surgery Procedure, Year, and Place: x2 epidural, cholecystectomy Hx Anesthesia Reactions: No - Immunization History Date of Tetanus Vaccine: up to date Date of Influenza Vaccine: never Infectious Disease History: No Infectious Disease History: Denies: Traveled Outside the [place] in Last 30 Days - Family History Known Family History: Positive: Cardiac Disease, Diabetes, Other - breast CA Family History: Per EMR from 08/07/2015, positive for unspecified cardiac dz and HTN in father. Positive breast CA and DM in mother. - Social History Alcohol Use: Rare Hx Substance Use: No Substance Use Type: Reports: None Hx Tobacco Use: No Smoking Status (MU): Never Smoked Tobacco Review of Systems Negative: Fever - on vitals, temp is 96.8 F Positive: Vomiting, Nausea Positive: flank pain - right All Other Systems Reviewed And Are Negative: Yes Physical Exam - Summary Physical Exam Summary: VITAL SIGNS: Reviewed. GENERAL: Patient is a well-developed and nourished female who is lying comfortable in the stretcher. Patient is not in any acute respiratory distress. HEAD AND FACE: Normocephalic and atraumatic. EYES: PERRLA, EOMI x 2, No injected conjunctiva. EARS: Hearing grossly intact. Ear canals and tympanic membranes are WNL. MOUTH: Oropharynx within normal limits. NECK: Supple, trachea is midline, no adenopathy, no JVD. CHEST: Symmetric, no tenderness at palpation LUNGS: Clear to auscultation bilaterally. No wheezing or crackles. CVS: RRR, S1 and S2 present, no murmurs or gallops appreciated. ABDOMEN: Soft. Right CVA tenderness. No signs of distention. Positive bowel sounds. No rebound no guarding, and no masses palpated. No abdominal bruit or pulsations. EXTREMITIES: FROM in all major joints, no edema, no cyanosis or clubbing. NEURO: Alert and oriented x 3. No acute neurological deficits. Speech is normal. SKIN: Dry and warm Triage Information Reviewed: Yes Vital Signs On Initial Exam: Initial Vitals Temp Pulse Resp BP Pulse Ox 96.8 F 94 18 140/99 96 12/29/18 15:54 12/29/18 15:54 12/29/18 15:54 12/29/18 15:54 12/29/18 15:54 Vital Signs Reviewed: Yes Diagnostics - Vital Signs Vital Signs Temp Pulse Resp BP Pulse Ox 12/29/18 15:54 96.8 F 94 18 140/99 96 - Laboratory Result Diagrams: 12/29/18 17:11 12/29/18 17:11 Lab Statement: Any lab studies that have been ordered have been reviewed, and results considered in the medical decision making process. - Ultrasound No standard instances Ultrasound Interpretation Completed By: Radiologist Summary of Ultrasound Findings: RENAL US IMPRESSION: Mild hydronephrosis of the right kidney is noted. This report was reviewed by ED physician. Re-Evaluation - Re-Evaluation First Eval Re-Evaluation Time: 18:34 Change: Improved Comment: Patient reports improvement of pain. Results of labs and tests were discussed. She will be discharged to home and follow up with PCP and urologist. GIGU Course/Dx - Course Assessment/Plan: Patient is a 33 y/o F presenting to ED with complaints of right flank pain with sudden onset yesterday at 0800. She endorses N/V as well. Patient also notes intermittent radiation of pain to abdomen. In room, pain is rated 7-8/10. She reports three previous episodes of kidney stones. Most recent episode was 12/20/18, states that kidney stone was 2 cm. LNMP was 12/10/18, states that she was negative for test when she was here 12/20/18. Nothing is noted to aggravate/alleviate Sx. Patient took Percocet eight hours ago. Blood work without any significant abnormality except for WBCs of 11.8, creatinine 1.15, glucose 125. Renal ultrasound impression: Mild hydronephrosis is the right any noted. I decided not to do abdominal pelvic CT since the patient doesnt seem to be very sick, and the pain is mild and she had multiple CTs one being last week. In the ED course the patient was given IV fluids and Toradol for the pain and her symptoms have resolved. The urinalysis is negative and she does not have a urinary tract infection. Therefore the patient was discharged home with follow-up with primary care physician and urologist. I discussed all the findings and test results with the patient. Patient was instructed to return to the emergency room immediately if any of the symptoms return or worsens. Plan of care was discussed with the patient and understands and agrees. All questions were answered at patient satisfaction. There were no further complaints or concerns. Lung exam before discharge: CTA B/ L. Good air exchange. No wheezing or crackles heard. CVS: S1 and S2 present. No murmurs appreciated. Patient is alert and oriented x 3. Patient is hemodynamically stable. Patient will be discharged home with follow up PCP in the next 2-3 days - Diagnoses Differential Diagnoses - Female: Renal Calculi, Renal Colic, Urinary Tract Infection Provider Diagnoses: Kidney stones, Flank pain Discharge - Sign-Out/Discharge Documenting (check all that apply): Patient Departure - discharge Patient Received Moderate/Deep Sedation with Procedure: No - NO PROCEDURES DONE - Discharge Plan Condition: Stable Disposition: HOME Prescriptions: Oxycodone HCl/Acetaminophen [Percocet 5-325 mg Tablet] 1 tab PO TID #8 tab MDD 3 Patient Education Materials: Kidney Stones (ED) Referrals: Holly Jesus MD [Primary Care Provider] - 3 Days Myke Guerrero MD [Medical Doctor] - 3 Days Additional Instructions: RETURN TO EMERGENCY DEPARTMENT FOR ANY NEW OR WORSENING SYMPTOMS. FOLLOW UP WITH PRIMARY CARE PHYSICIAN AND UROLOGIST WITHIN THREE DAYS. - Billing Disposition and Condition Condition: STABLE Disposition: Home - Attestation Statements Document Initiated by Scribe: Yes Documenting Scribe: DAMASO ROY Provider For Whom Scribe is Documenting (Include Credential): VIBHA MOLINA MD Scribe Attestation: DAMASO Kolb scribed for VIBHA MOLINA MD on 12/30/18 at 1116. Scribe Documentation Reviewed: Yes Provider Attestation: The documentation as recorded by the DAMASO salazar accurately reflects the service I personally performed and the decisions made by pr, VIBHA MOLINA MD Status of Scribe Document: Viewed
[2018-12-29] MEDS ORDERED: NS 0.9% 1000 ML** 1,000 ML IV ONE (16:40)
[2018-12-29] MEDS ORDERED: Ketorolac INJ* 30 MG/ML 1 ML VIAL IV PUSH ONE (16:40)
[2018-12-29] MEDS ORDERED: Ondansetron ODT TAB* 4 MG PO ONE (16:40)
[2018-12-29 17:18] LABS: ABS Basophils 0 10^3/ul (0-0.2); ABS Eosinophils 0.1 10^3/ul (0-0.6); ABS Lymphocytes 1.8 10^3/ul (1.0-4.8); ABS Monocytes 0.6 10^3/ul (0-0.8); ABS Neutrophils 9.3 10^3/ul (1.5-7.7); ABS Nucleated RBC 0 10^3/ul; Eosinophil % 0.6 %; Hematocrit 40 % (35-47); Hemoglobin 13.4 g/dl (12.0-16.0); Lymphocyte % 14.9 %; Mean Corpuscular HGB Conc 33 g/dl (31-36); Mean Corpuscular Hemoglobin 28 pg (27-31); Mean Corpuscular Volume 83 fL (80-97); Mean Platelet Volume 7.1 fL (7.4-10.4); Nucleated Red Blood Cells % 0; Platelet Count 407 10^3/ul (150-450); Red Blood Count 4.83 10^6/ul (4.00-5.40); Red Cell Distribution Width 15 % (10.5-15); White Blood Count 11.8 10^3/ul (3.5-10.8)
[2018-12-29 17:33] LABS: ALT 32 U/L (7-52); AST 23 U/L (13-39); Albumin 4.5 g/dL (3.2-5.2); Albumin/Globulin Ratio 1.4 (1-3); Alkaline Phosphatase 70 U/L (34-104); Anion Gap 11 mmol/L (2-11); BUN/Creatinine Ratio 15.7 (8-20); Blood Urea Nitrogen 18 mg/dL (6-24); CO2 Carbon Dioxide 24 mmol/L (22-32); Calcium 9.7 mg/dL (8.6-10.3); Chloride 101 mmol/L (101-111); EGFR African American 65.8 (>60); EGFR Non-African American 54.3 (>60); Globulin 3.2 g/dL (2-4); Glucose 125 mg/dL (70-100); Potassium 4.2 mmol/L (3.5-5.0); Sodium 136 mmol/L (135-145); Total Protein 7.7 g/dL (6.4-8.9)
[2018-12-29 18:02] LABS: HCG Pregnancy < 0.60 mIU/mL
[2018-12-29 18:24] LABS: Urine Appearance Clear; Urine Bilirubin Negative (Negative); Urine Blood Negative (Negative); Urine Color Yellow; Urine Glucose Negative (Negative); Urine Ketones Negative (Negative); Urine Nitrite Negative (Negative); Urine Protein Negative (Negative); Urine Specific Gravity 1.012 (1.010-1.030); Urine Urobilinogen Negative (Negative)
[2018-12-29 19:29] VITALS: BP 129/71
== END 2018-12-29 19:06 | disposition home or self-care (01) ==
LOC: ED 15:53
DX: N20.0 Calculus of kidney (principal); R10.84 Generalized abdominal pain; R11.2 Nausea with vomiting, unspecified; I10 Essential (primary) hypertension; K21.9 Gastro-esophageal reflux disease without esophagitis
CPT/HCPCS: 36415; 76775; 80053; 81003; 84702; 85025; 96374; 99283; A9270-GY; J1885